=== PATIENT | male | born 1935 | race Caucasian/White ===

== ENCOUNTER 2016-12-23 08:17 | Day surgery (SDC) | payer OTHER, MEDICARE ==
[2016-12-22 16:56] VITALS: BMI 28.0
[2016-12-23] MEDS: CYCLOPENTOLATE 2% OPHTH SOLN 2 ML BOTTLE ONE ×3 (09:10→09:20)
[2016-12-23] MEDS: PHENYLEPHRINE 2.5% OPHTH SOLN 15 ML BOTTLE ONE ×3 (09:10→09:20)
[2016-12-23] MEDS: TROPICAMIDE 1% OPHTH SOLN 15 ML BOTTLE ONE ×3 (09:10→09:20)
[2016-12-23] MEDS: CIPROFLOXACIN 0.3% EYE DROPS 5 ML BOTTLE ONE ×3 (09:10→09:20)
[2016-12-23] MEDS ORDERED: BSS (NA/CA/MG/K) BALANCED SALT SOLUTION OPHTH SOLN 15 ML BOTTLE ONE (09:18)
[2016-12-23] MEDS ORDERED: CARBACHOL 0.01% INTRA-OCULAR 1.5 ML VIAL ONE (09:18)
[2016-12-23] MEDS ORDERED: LIDOCAINE HCL 2% JELLY 10 ML CARTRIDGE ONE (09:55)
[2016-12-23] MEDS ORDERED: LIDOCAINE 1% P/F 10 MG/ML VIAL ONE (09:55)
[2016-12-23] MEDS ORDERED: MIDAZOLAM HCL 2 MG/2 ML SINGLE DOSE VIAL ONE (10:09)
[2016-12-23 11:21] VITALS: BP 100/56; PULSE 62; TEMP 98
[2016-12-23] MEDS ORDERED: ONDANSETRON 4 MG/2 ML VIAL IVPUSH PRN (16:39)
[2016-12-23] MEDS ORDERED: ACETAMINOPHEN 325 MG TABLET (FP) PO PRN (16:39)
[2016-12-23] MEDS ORDERED: LACTATED RINGERS SOLUTION 1,000 ML IV SCH (16:45)
--- NOTE | 2016-12-23 23:18 | OP ---
DATE OF OPERATION: 12/23/2016 OPERATIVE PROCEDURE: Lens phacoemulsification with posterior chamber intraocular lens placement left eye. PREOPERATIVE DIAGNOSIS: Visually significant cataract of left eye. POSTOPERATIVE DIAGNOSIS: Visually significant cataract of left eye. SURGEON: Christiano Corbett MD ANESTHESIA: MAC PROCEDURE: The patient was brought to the operating room and placed under monitored anesthesia care by Anesthesia. A drop of Tetracaine was then placed over the left eye. The patient was then prepped and draped in the usual sterile manner. A speculum was then placed over the left eye. The eye was then well irrigated with copious amounts of BSS (balanced salt solution). The operating microscope was then moved into position. A paracentesis was performed using a 15 degree blade. At this point 0.5 mL of 1% preservative-free lidocaine was injected into the anterior chamber. Amvisc plus was then injected into the anterior chamber. A clear corneal incision was then formed using a 2.2 mm keratome. A capsulorrhexis was then performed in a continuous circular fashion beginning with a cystotome, completed with an Utrata forceps. Hydrodissection was then performed using BSS on a cannula. The phaco probe was then introduced through the corneal wound and the cataract was removed using the phaco chop technique. Approximately 3 seconds of absolute phaco time was used. The remaining cortex was then removed using irrigation and aspiration with an I/A probe. The capsule was then filled with regular Amvisc and the capsule was noted to be intact. A previously selected foldable posterior chamber intraocular lens was then injected into the capsule through the corneal wound using a lens injector. It was then dialed into position using a Sinskey hook. The Amvisc was then removed using irrigation and aspiration. Miostat was then injected through the paracentesis to constrict the pupil. The paracentesis and corneal wound were then hydrated and noted to be water tight. A drop of Maxitrol was then placed over the eye. The speculum was removed and clear shield was taped over the eye. The patient tolerated the procedure well and there were no surgical complications. The patient was asked to follow up in my office the next day. CHRISTIANO CORBETT M.D. [id number]
== END 2016-12-23 11:00 ==
LOC: FASU 08:17
PROVIDERS: ATTEND Ophthalmology
PROC: 08RK3JZ Replacement of Left Lens with Synthetic Substitute, Percutaneous Approach (ICD-10-PCS; principal; 2016-12-23 10:10)
DX: H26.8 Other specified cataract (principal)

== ENCOUNTER 2017-05-22 01:01 | Inpatient (IN) | payer OTHER, MEDICARE ==
[2017-05-22] MEDS ORDERED: SODIUM CHLORIDE 0.9% 1000 ML INFUS.BAG IV PRN (01:42)
--- NOTE | 2017-05-22 01:42 | PDOC ---
History of Present Illness - General Chief Complaint: SIRS, Suspected/Possible Stated Complaint: FEVER Time Seen by Provider: 05/22/17 01:40 History Source: Legal Guardian(s), Correction Records ([facility]) - History of Present Illness Initial Comments: 05/22/17 03:23 81 year old male sent from [facility] for AMS, fever 101 x 1 day. information surrounding the worsening progression of illness Patient is alert responsive to tactile stimuli. Patient has a history of UTI, BPH, dementia, CVA, CAD. cardiac pacemaker, dysphagia. DNR/DNI as per [place] records PMD: [facility] Past History - Past Medical History Allergies/Adverse Reactions: Allergies Allergy/AdvReac Type Severity Reaction Status Date / Time No Known Allergies Allergy Verified 05/22/17 07:34 Home Medications: Ambulatory Orders Ascorbate Calcium [Vitamin C] 500 mg PO DAILY 12/22/16 Aspirin [ASA -] 81 mg PO DAILY 12/22/16 Clopidogrel Bisulfate [Plavix -] 75 mg PO DAILY 12/22/16 Ergocalciferol (Vitamin D2) [Vitamin D2] 50,000 unit PO WEEKLY 12/22/16 Finasteride 5 mg PO DAILY 12/22/16 Lisinopril 5 mg PO DAILY 12/22/16 Lurasidone HCl [Latuda] 120 mg PO DAILY 12/22/16 Metoprolol Succinate [Toprol Xl] 50 mg PO DAILY 12/22/16 Multivitamins [Multivit ([facility] Formulary)] 1 tab PO DAILY 12/22/16 Sertraline HCl [Zoloft -] 200 mg PO DAILY 12/22/16 Simvastatin 20 mg PO HS 12/22/16 Tamsulosin HCl 0.4 mg PO HS 12/22/16 Tramadol HCl/Acetaminophen [Tramadol-Acetaminophn 37.5-325] 1 each PO DAILY PRN 12/22/16 Tramadol HCl/Acetaminophen [Tramadol-Acetaminophn 37.5-325] 2 each PO BID Anemia: No Asthma: No Cancer: No CVA: Yes COPD: No Dementia: Yes Diabetes: No Disorders: Yes (BPH) HTN: Yes Hypercholesterolemia: Yes Seizures: No Thyroid Disease: No - Surgical History Cardiac Surgery: Yes (PACEMAKER INSERTION) - Psycho/Social/Smoking Cessation Hx Smoking History: Unknown if ever smoked Hx Alcohol Use: No Drug/Substance Use Hx: No Substance Use Type: None Hx Substance Use Treatment: No Review of Systems - Review of Systems Able to Perform ROS?: Yes Constitutional: Yes: Fever, Malaise Respiratory: Yes: Cough, Productive cough Neurological: Yes: Other (aletered mental status) *Physical Exam - Vital Signs 05/22/17 04:26 Last Vital Signs Temp Pulse Resp BP Pulse Ox 103.3 F H 90 27 H 138/94 90 L 05/22/17 02:18 05/22/17 02:18 05/22/17 02:18 05/22/17 02:18 05/22/17 02:18 - Physical Exam General Appearance: Yes: Other (alert responsive to tactile stimuli) Respiratory/Chest: positive: Labored Respiration, Other (coarse breath sounds) Cardiovascular: positive: Regular Rhythm, Regular Rate Gastrointestinal/Abdominal: positive: Normal Bowel Sounds, Soft Extremity: positive: Normal Capillary Refill, Normal Inspection, Normal Range of Motion Integumentary: positive: Normal Color, Dry, Warm Neurologic: positive: Alert, Respond to painful stimul. negative: Fully Oriented Heart Score/ECG Review - History History: Moderately suspicious - Electrocardiogram EKG: Non specific repolarization disturbance - Age Age: >/= 65 - Risk Factors Risk Factors Heart Score: Yes Hx Hypertension Based on the list above the patient has:: 1-2 risk factors - Troponin Troponin: 1-3x normal limit - Score Heart Score - Total: 6 - ECG Intrepretation Rhythm: Regular Rhythm Comment:: 05/22/17 03:48 Sinus RHYThm with sinus arrythmia. right bundle branch block RSR lead 1 05/22/17 06:26 ED Treatment Course - LABORATORY CBC & Chemistry Diagram: 05/26/17 06:30 05/26/17 06:30 - RADIOLOGY Chest X-Ray Result: Pneumonia (LLL? haziness) Medical Decision Making - Critical Care Time Total Critical Care Time (minutes): 60 Critical Care Statement: The care of this patient involved high complexity decision making to prevent further life threatening deterioration of the patient 's condition and/or to evaluate & treat vital organ system(s) failure or risk of failure. - Medical Decision Making 05/22/17 03:58 troponin elevated: I spoke to Dr. Luz. cardiology. for hypertension recommends lopressor. 05/22/17 04:20 discussed with ICU DIRECTOR TRANSPORTATION Elijah. recommends no ICU admission at this time due to stable v/s. 05/22/17 04:23 A: Elevated Troponin, Sepsis, Pneumonia P: cbc cmp troponin: elevated EKG: sinus rhythm RSR lead I chest xray 05/22/17 04:19 Dr. karin Man for admission. 05/22/17 06:25 Dr. ann man for sign out. 05/22/17 06:44 b/p dropping to 80/40. will start dopamine drip to maintain b/p. patient to be admitted for telestep down. 05/22/17 07:15 patient signed out to Heena Xiao DIRECTOR TRANSPORTATION. pending CT head, cardiac labs repeated and disposition *DC/Admit/Observation/Transfer Diagnosis at time of Disposition: Elevated troponin Sepsis Qualifiers: Sepsis type: sepsis due to unspecified organism Qualified Code(s): A41.9 - Sepsis, unspecified organism Pneumonia Qualifiers: Pneumonia type: due to unspecified organism Laterality: left Lung location: upper lobe of lung Qualified Code(s): J18.1 - Lobar pneumonia, unspecified organism - Discharge Dispostion Admit: Yes - Referrals
[2017-05-22] MEDS ORDERED: ACETAMINOPHEN 650 MG SUPP.RECT PR ONE (01:48)
[2017-05-22 02:34] LABS: URINE APPEARANCE SLCLOUDY; URINE BILIRUBIN NEGATIVE (NEGATIVE); URINE BLOOD NEGATIVE (NEGATIVE); URINE COLOR YELLOW; URINE GLUCOSE (UA) NEGATIVE (NEGATIVE); URINE KETONE NEGATIVE (NEGATIVE); URINE LEUK ESTERASE NEGATIVE (NEGATIVE); URINE NITRITE NEGATIVE (NEGATIVE); URINE PROTEIN NEGATIVE (NEGATIVE); URINE UROBILINOGEN NEGATIVE mg/dL (0.2-1.0)
[2017-05-22 02:37] LABS: BASOPHIL 0.1 % (0-2.0); EOSINOPHIL 0.3 % (0-4.5); MCH 30.6 pg (25.7-33.7); MCHC 33.7 g/dl (32.0-35.9); MEAN CELL VOLUME 90.8 fl (80-96); MEAN PLT VOLUME 11.3 fl (7.5-11.1); NEUTROPHILS 89.3 % (42.8-82.8); PLATELET COUNT 149 K/MM3 (134-434); RDW 13.2 % (11.9-15.9); WHITE BLOOD COUNT 16.3 K/mm3 (4.0-10.0)
[2017-05-22 02:45] LABS: VENOUS PH 7.34 (7.32-7.42)
[2017-05-22] MEDS: SODIUM CHLORIDE 1,000 ML IV SCH (02:52)
[2017-05-22 02:57] LABS: INR 1.21 (0.82-1.09); PROTHROMBIN TIME (PATIENT) 13.4 SEC (9.98-11.88)
[2017-05-22 03:00] LABS: ACTIVATED PTT 32.2 SECONDS (26.9-34.4)
[2017-05-22 03:08] LABS: ALBUMIN 3.8 g/dl (3.4-5.0); ANION GAP 12 (8-16); BILIRUBIN,TOTAL 0.5 mg/dL (0.2-1.0); CALCIUM 8.3 mg/dL (8.5-10.1); CO2 21 mmol/L (21-32); CREATININE 1.4 mg/dL (0.7-1.3); GLUCOSE,RANDOM 124 mg/dL (74-106); SGOT/AST 26 U/L (15-37); SGPT/ALT 33 U/L (12-78); TOT PROT 6.5 g/dl (6.4-8.2)
[2017-05-22 03:22] LABS: ALK PHOS 62 U/L (45-117); CPK 100 IU/L (39-308)
[2017-05-22] MEDS ORDERED: SODIUM CHLORIDE 500 ML IV STA ×2 (03:23→06:31)
[2017-05-22 03:24] LABS: TROPONIN I 0.72 ng/ml (0.00-0.05)
[2017-05-22] MEDS ORDERED: PIPERACILLIN/TAZOBACTAM 4.5 GM VIAL IVPB ONE (03:31)
[2017-05-22] MEDS ORDERED: VANCOMYCIN 1,000 MG in DEXTROSE 5%-WATER - 250 ML IVPB ONE (03:31)
[2017-05-22] MEDS ORDERED: VANCOMYCIN 1 GRAM (PRE-DOCKED) 250 ML IVPB ONE (03:59)
[2017-05-22] MEDS ORDERED: PIPERACILLIN/TAZOB 4.5 GM 100 ML IVPB ONE (03:59)
[2017-05-22] MEDS ORDERED: ASPIRIN 300 MG SUPP.RECT PR ONE (04:18)
[2017-05-22] MEDS ORDERED: ASPIRIN 300 MG SUPP.RECT RC ONE (04:31)
[2017-05-22] MEDS ORDERED: DOPAMINE 400 MG/D5W - 250 ML IVPB SCH (06:45)
--- NOTE | 2017-05-22 07:22 | PDOC ---
*Physical Exam - Vital Signs Last Vital Signs Temp Pulse Resp BP Pulse Ox 101 F H 82 15 101/34 99 05/22/17 06:02 05/22/17 06:44 05/22/17 06:44 05/22/17 06:44 05/22/17 06:44 Heart Score/ECG Review - History History: Slightly suspicious - Electrocardiogram EKG: Normal - Age Age: >/= 65 - Risk Factors Based on the list above the patient has:: >/=3 risk factors or Hx atherosclerotic disease - Troponin Troponin: 1-3x normal limit - Score Heart Score - Total: 5 - ECG Intrepretation Rhythm: Regular Rhythm (SINUS RHYTHM FIRST_DEGREE AV block rate 80) ED Treatment Course - LABORATORY CBC & Chemistry Diagram: 05/22/17 02:25 05/22/17 02:25 - ADDITIONAL ORDERS Additional order review: Laboratory Results 05/22/17 05/22/17 05/22/17 04:42 02:40 02:25 INR PTT (Actin FS) VBG pH 7.34 POC VBG pCO2 38.2 POC VBG pO2 57.2 H Mixed VBG HCO3 20.0 Sodium Potassium Chloride Carbon Dioxide Anion Gap BUN Creatinine Creat Clearance w eGFR Random Glucose Lactic Acid 2.4 H* 3.0 H* Calcium Total Bilirubin AST ALT Alkaline Phosphatase Creatine Kinase Troponin I Total Protein Albumin Urine Color Urine Appearance Urine pH Urine Protein Urine Glucose (UA) Urine Ketones Urine Blood Urine Nitrite Urine Bilirubin Urine Urobilinogen Ur Leukocyte Esterase Blood Type Antibody Screen 05/22/17 05/22/17 05/22/17 02:25 02:25 02:25 INR PTT (Actin FS) VBG pH POC VBG pCO2 POC VBG pO2 Mixed VBG HCO3 Sodium 137 Potassium 4.6 Chloride 104 Carbon Dioxide 21 Anion Gap 12 BUN 39 H Creatinine 1.4 H Creat Clearance w eGFR 48.40 Random Glucose 124 H Lactic Acid Calcium 8.3 L Total Bilirubin 0.5 AST 26 ALT 33 Alkaline Phosphatase 62 Creatine Kinase 100 Troponin I 0.72 H* Total Protein 6.5 Albumin 3.8 Urine Color Yellow Urine Appearance Slcloudy Urine pH 5.0 Urine Protein Negative Urine Glucose (UA) Negative Urine Ketones Negative Urine Blood Negative Urine Nitrite Negative Urine Bilirubin Negative Urine Urobilinogen Negative Ur Leukocyte Esterase Negative Blood Type O POSITIVE Antibody Screen Negative 05/22/17 02:25 INR 1.21 H PTT (Actin FS) 32.2 VBG pH POC VBG pCO2 POC VBG pO2 Mixed VBG HCO3 Sodium Potassium Chloride Carbon Dioxide Anion Gap BUN Creatinine Creat Clearance w eGFR Random Glucose Lactic Acid Calcium Total Bilirubin AST ALT Alkaline Phosphatase Creatine Kinase Troponin I Total Protein Albumin Urine Color Urine Appearance Urine pH Urine Protein Urine Glucose (UA) Urine Ketones Urine Blood Urine Nitrite Urine Bilirubin Urine Urobilinogen Ur Leukocyte Esterase Blood Type Antibody Screen 05/22/17 02:25 RBC 3.71 L MCV 90.8 MCHC 33.7 RDW 13.2 MPV 11.3 H Neutrophils % 89.3 H Lymphocytes % 2.7 L Monocytes % 7.6 Eosinophils % 0.3 Basophils % 0.1 - RADIOLOGY Chest X-Ray Result: Pneumonia (LLL? haziness) - Medications Given in the ED: ED Medications Discontinued Medications Generic Name Dose Route Start Last Admin Trade Name Freq PRN Reason Stop Dose Admin Acetaminophen 650 mg 05/22/17 01:48 05/22/17 02:24 Tylenol Suppository - [place] 05/22/17 01:49 650 mg ONCE ONE Administration Aspirin 300 mg 05/22/17 04:18 05/22/17 04:35 Asa - [place] 05/22/17 04:19 300 mg ONCE ONE Administration Sodium Chloride 500 mls @ 500 mls/hr 05/22/17 03:23 05/22/17 03:57 Normal Saline - IV 05/22/17 04:22 500 mls/hr ASDIR STA Administration Vancomycin HCl 1,000 mg/ 250 mls @ 200 mls/hr 05/22/17 03:31 05/22/17 03:57 Dextrose IVPB 05/22/17 04:45 200 mls/hr ONCE ONE Administration Piperacillin Sod/Tazobactam Sod 4.5 gm 05/22/17 03:31 05/22/17 03:57 Zosyn - IVPB 05/22/17 03:32 4.5 gm ONCE ONE Administration Medical Decision Making - Medical Decision Making 05/22/17 07:10 Patient received in sign out from RAYRAY Alberto. Patient is to be admitted to telemetry for sepsis AMS and elevated troponin. Attempted to contact Dr. Tina Delong for admission. Patient currently awaiting dopamine drip at 5 mics per minute. patient second troponin was collected. Second EKG unchanged from previous. 05/22/17 08:01 Receive phone call from radiologist Dr. Cary who states there is a questionable lung lesion in the left upper lobe versus the rib. He recommends a CT of the chest. We'll discuss case with Dr. Tina Goldsmith shortly. 05/22/17 09:15 Laboratory Tests 05/22/17 05/22/17 04:42 06:30 Lactic Acid 2.4 H* Troponin I 1.50 H* D 05/22/17 09:15 Selected Entries 05/22/17 07:30 Pulse Rate [ 77 Apical] Respiratory 16 Rate Blood Pressure 104/40 [Left Arm] O2 Sat by Pulse 99 Oximetry (%) Patient maintaining blood pressure without dopamine drip. Continue to place calls to Dr. Delong. Head CT negative for acute findings. Due to elevation of troponin will contact cardiology and consider heparin drip 05/22/17 09:[address] Delong. Chest CT without contrast was ordered. She recommends Dr. Taylor location and measurement technician to discuss troponin. Call was placed. 05/22/17 10:[address] Taylor as of yet. Call placed to nurse on to follow -up consultation and plan of care. *DC/Admit/Observation/Transfer Diagnosis at time of Disposition: Elevated troponin Sepsis Qualifiers: Sepsis type: sepsis due to unspecified organism Qualified Code(s): A41.9 - Sepsis, unspecified organism Pneumonia Qualifiers: Pneumonia type: due to unspecified organism Laterality: left Lung location: lower lobe of lung Qualified Code(s): J18.1 - Lobar pneumonia, unspecified organism - Referrals - Patient Instructions - Post Discharge Activity
[2017-05-22 08:14] LABS: TROPONIN I 1.5 ng/ml (0.00-0.05)
[2017-05-22] MEDS ORDERED: DOPAMINE 400 MG/D5W - 250 ML IVPB ONE (08:19)
[2017-05-22] MEDS ORDERED: ACETAMINOPHEN 325 MG TABLET (FP) PO PRN (09:08)
[2017-05-22] MEDS ORDERED: ALBUTEROL SO4 0.083% IH SOL 2.5 MG/3 ML VIAL.NEB. NEB PRN (09:08)
[2017-05-22] MEDS ORDERED: PIPERACILLIN/TAZOB 2.25 GM 2.25 GM in DEXTROSE 5%-WATER - 50 ML IVPB SCH (10:00)
[2017-05-22] MEDS ORDERED: FINASTERIDE 5 MG TABLET (FP) PO SCH (10:00)
--- NOTE | 2017-05-22 10:38 | HP ---
Admitting History and Physical - Primary Care Physician PCP: Jaguar Mccullough - Admission History of Present Illness: ER HISTORY - History of Present Illness Initial Comments: 05/22/17 03:23 81 year old male sent from [facility] for AMS, fever 101 x 1 day. Patient is alert responsive to tactile stimuli. Patient has a history of UTI, BPH, dementia, CVA, CAD. cardiac pacemaker, dysphagia. DNR/DNI as per [place] records PMD: [facility] Pt examined by me in Telemetry h/o CAD, s/p CABG, hard of hearing, BPH,HTN major depression, dementia Sent from [facility] for elevated temp 103 F recorded in NH and altered mental status.Baseline mentation-- alert, disoriented and does not follow commands. Pt currently lying in bed, no distress.He is following simple commands. Coughing + moist+, on 50%ventimask. Does not appear to in distress, comfortable. As per day nurse, he seems to be more awake. Vizcaino+ History Source: Medical Record Limitations to Obtaining History: Physical Impairment - Past Medical History Cardiovascular: Yes: CAD (s/p CABG, PPM), HTN Renal/: Yes: BPH, UTI - Past Surgical History Past Surgical History: Yes: CABG, Joint Replacement, Permanent Pacemaker - Smoking History Smoking history: Unknown if ever smoked Have you smoked in the past 12 months: No - Alcohol/Substance Use Hx Alcohol Use: No Home Medications - Allergies Allergies/Adverse Reactions: Allergies Allergy/AdvReac Type Severity Reaction Status Date / Time No Known Allergies Allergy Verified 05/22/17 07:34 - Home Medications Home Medications: Ambulatory Orders Ascorbate Calcium [Vitamin C] 500 mg PO DAILY 12/22/16 Aspirin [ASA -] 81 mg PO DAILY 12/22/16 Clopidogrel Bisulfate [Plavix -] 75 mg PO DAILY 12/22/16 Ergocalciferol (Vitamin D2) [Vitamin D2] 50,000 unit PO WEEKLY 12/22/16 Finasteride 5 mg PO DAILY 12/22/16 Lisinopril 5 mg PO DAILY 12/22/16 Lurasidone HCl [Latuda] 120 mg PO DAILY 12/22/16 Metoprolol Succinate [Toprol Xl] 50 mg PO DAILY 12/22/16 Multivitamins [Multivit ([facility] Formulary)] 1 tab PO DAILY 12/22/16 Sertraline HCl [Zoloft -] 200 mg PO DAILY 12/22/16 Simvastatin 20 mg PO HS 12/22/16 Tamsulosin HCl 0.4 mg PO HS 12/22/16 Tramadol HCl/Acetaminophen [Tramadol-Acetaminophn 37.5-325] 1 each PO DAILY PRN 12/22/16 Tramadol HCl/Acetaminophen [Tramadol-Acetaminophn 37.5-325] 2 each PO BID Family Disease History - Family Disease History Family History: Unable to Obtain Review of Systems Unable to obtain ROS, reason: dementia Physical Examination Vital Signs: Vital Signs Temperature 99.4 F 05/22/17 09:00 Pulse Rate 76 05/22/17 09:00 Respiratory Rate 16 05/22/17 09:00 Blood Pressure 108/52 05/22/17 09:00 O2 Sat by Pulse Oximetry (%) 99 05/22/17 09:00 Constitutional: Yes: No Distress, Calm Cardiovascular: Yes: Regular Rate and Rhythm Respiratory: Yes: Diminished, Rhonchi, Other (sternal scar) Gastrointestinal: Yes: Normal Bowel Sounds, Soft, Abdomen, Obese. No: Distention, Tenderness Edema: No Psychiatric: Yes: Alert Labs: Laboratory Results - last 24 hr 05/22/17 05/22/17 05/22/17 02:25 02:25 02:25 WBC 16.3 H RBC 3.71 L Hgb 11.4 L Hct 33.7 L MCV 90.8 MCH 30.6 MCHC 33.7 RDW 13.2 Plt Count 149 MPV 11.3 H Neutrophils % 89.3 H Lymphocytes % 2.7 L Monocytes % 7.6 Eosinophils % 0.3 Basophils % 0.1 INR 1.21 H PTT (Actin FS) 32.2 VBG pH POC VBG pCO2 POC VBG pO2 Mixed VBG HCO3 Sodium Potassium Chloride Carbon Dioxide Anion Gap BUN Creatinine Creat Clearance w eGFR Random Glucose Lactic Acid Calcium Total Bilirubin AST ALT Alkaline Phosphatase Creatine Kinase Troponin I Total Protein Albumin Urine Color Yellow Urine Appearance Slcloudy Urine pH 5.0 Ur Specific [place] 1.010 Urine Protein Negative Urine Glucose (UA) Negative Urine Ketones Negative Urine Blood Negative Urine Nitrite Negative Urine Bilirubin Negative Urine Urobilinogen Negative Ur Leukocyte Esterase Negative Blood Type Antibody Screen 05/22/17 05/22/17 05/22/17 02:25 02:25 02:25 WBC RBC Hgb Hct MCV MCH MCHC RDW Plt Count MPV Neutrophils % Lymphocytes % Monocytes % Eosinophils % Basophils % INR PTT (Actin FS) VBG pH POC VBG pCO2 POC VBG pO2 Mixed VBG HCO3 Sodium 137 Potassium 4.6 Chloride 104 Carbon Dioxide 21 Anion Gap 12 BUN 39 H Creatinine 1.4 H Creat Clearance w eGFR 48.40 Random Glucose 124 H Lactic Acid 3.0 H* Calcium 8.3 L Total Bilirubin 0.5 AST 26 ALT 33 Alkaline Phosphatase 62 Creatine Kinase 100 Troponin I 0.72 H* Total Protein 6.5 Albumin 3.8 Urine Color Urine Appearance Urine pH Ur Specific [place] Urine Protein Urine Glucose (UA) Urine Ketones Urine Blood Urine Nitrite Urine Bilirubin Urine Urobilinogen Ur Leukocyte Esterase Blood Type O POSITIVE Antibody Screen Negative 05/22/17 05/22/17 05/22/17 02:40 04:42 06:30 WBC RBC Hgb Hct MCV MCH MCHC RDW Plt Count MPV Neutrophils % Lymphocytes % Monocytes % Eosinophils % Basophils % INR PTT (Actin FS) VBG pH 7.34 POC VBG pCO2 38.2 POC VBG pO2 57.2 H Mixed VBG HCO3 20.0 Sodium Potassium Chloride Carbon Dioxide Anion Gap BUN Creatinine Creat Clearance w eGFR Random Glucose Lactic Acid 2.4 H* Calcium Total Bilirubin AST ALT Alkaline Phosphatase Creatine Kinase 202 Troponin I 1.50 H* D Total Protein Albumin Urine Color Urine Appearance Urine pH Ur Specific [place] Urine Protein Urine Glucose (UA) Urine Ketones Urine Blood Urine Nitrite Urine Bilirubin Urine Urobilinogen Ur Leukocyte Esterase Blood Type Antibody Screen Imaging - Results Chest X-ray: Image Reviewed (? pneumonia , density left upper lobe) Cat Scan: Report Reviewed (head CT negative) EKG: Image Reviewed (NSR) Problem List - Problems (1) Pneumonia Code(s): J18.9 - PNEUMONIA, UNSPECIFIED ORGANISM Qualifiers: Pneumonia type: due to unspecified organism Laterality: left Lung location: upper lobe of lung Qualified Code(s): J18.1 - Lobar pneumonia, unspecified organism (2) Sepsis Code(s): A41.9 - SEPSIS, UNSPECIFIED ORGANISM Qualifiers: Sepsis type: sepsis due to unspecified organism Qualified Code(s): A41.9 - Sepsis, unspecified organism (3) NSTEMI (non-ST elevated myocardial infarction) Code(s): I21.4 - NON-ST ELEVATION (NSTEMI) MYOCARDIAL INFARCTION (4) Depression Code(s): F32.9 - MAJOR DEPRESSIVE DISORDER, SINGLE EPISODE, UNSPECIFIED (5) Dementia Code(s): F03.90 - UNSPECIFIED DEMENTIA WITHOUT BEHAVIORAL DISTURBANCE (6) HTN (hypertension) Code(s): I10 - ESSENTIAL (PRIMARY) HYPERTENSION (7) CAD (coronary artery disease) Code(s): I25.10 - ATHSCL HEART DISEASE OF [place] CORONARY ARTERY W/O ANG PCTRS Assessment/Plan PLAN Fever- ? pneumonia Pulmonary and ID eval Check sputum cultures Iv antibiotics Chest CT - no contrast ordered cultures pending repeat lactic acid levels IV fluids gentle nebs as needed NSTEMI- Trend Troponins Telemetry Cardiology eval with regards to Heparin infusion elevated troponins may be due to sepsis continue with ASA and Plavix Lung lesion -- seen in XR -- Ct chest ordered Advance directive- DNR/DNI
[2017-05-22] MEDS ORDERED: PIPERACILLIN/TAZOB 2.25 GM/50 ML PRE-DOCKED BAG IVPB ONE (11:30)
--- NOTE | 2017-05-22 11:55 | CON.CARD ---
Consult Consult Specialty:: cardiology Reason for Consultation:: elevated TNI - History of Present Illness History of Present Illness: 81 year old male sent from [facility] for AMS, fever 101 x 1 day. Patient is alert responsive to tactile stimuli. Patient has a history of ?CABG, UTI, BPH, dementia, CVA, CAD. cardiac pacemaker , dysphagia. "sonte-cold deag" (per bijal), DNR/DNI as per [place] records - History Source History Provided By: Patient, Medical Record Limitations to Obtaining History: Other (hard of hearing) - Past Medical History Cardio/Vascular: Yes: CAD (s/p CABG, PPM), HTN Renal/: Yes: BPH, UTI - Past Surgical History Past Surgical History: Yes: CABG, Joint Replacement, Permanent Pacemaker - Alcohol/Substance Use Hx Alcohol Use: No - Smoking History Smoking history: Unknown if ever smoked Have you smoked in the past 12 months: No Home Medications - Allergies Allergies/Adverse Reactions: Allergies Allergy/AdvReac Type Severity Reaction Status Date / Time No Known Allergies Allergy Verified 05/22/17 07:34 - Home Medications Home Medications: Ambulatory Orders Ascorbate Calcium [Vitamin C] 500 mg PO DAILY 12/22/16 Aspirin [ASA -] 81 mg PO DAILY 12/22/16 Clopidogrel Bisulfate [Plavix -] 75 mg PO DAILY 12/22/16 Ergocalciferol (Vitamin D2) [Vitamin D2] 50,000 unit PO WEEKLY 12/22/16 Finasteride 5 mg PO DAILY 12/22/16 Lisinopril 5 mg PO DAILY 12/22/16 Lurasidone HCl [Latuda] 120 mg PO DAILY 12/22/16 Metoprolol Succinate [Toprol Xl] 50 mg PO DAILY 12/22/16 Multivitamins [Multivit ([facility] Formulary)] 1 tab PO DAILY 12/22/16 Sertraline HCl [Zoloft -] 200 mg PO DAILY 12/22/16 Simvastatin 20 mg PO HS 12/22/16 Tamsulosin HCl 0.4 mg PO HS 12/22/16 Tramadol HCl/Acetaminophen [Tramadol-Acetaminophn 37.5-325] 1 each PO DAILY PRN 12/22/16 Tramadol HCl/Acetaminophen [Tramadol-Acetaminophn 37.5-325] 2 each PO BID Vital Signs: Vital Signs Temperature 99.4 F 05/22/17 09:00 Pulse Rate 76 05/22/17 09:00 Respiratory Rate 18 05/22/17 09:00 Blood Pressure 108/52 05/22/17 09:00 O2 Sat by Pulse Oximetry (%) 96 05/22/17 09:00 - Other Data Labs, Other Data: INR, PTT INR 1.21 (0.82-1.09) H 05/22/17 02:25 Problem List - Problems (1) Elevated troponin Assessment/Plan: TNI 0.7-->1.5; CK relative index not suggestive of IL; however, pt now c/o chest pain. F/u EKG and TNI now. On ASA and clopidogrel; on statin. IV heparin if EKG changes (RBBB this am) and continue chest pain. ECHO for LVEF, wall motion. Code(s): R74.8 - ABNORMAL LEVELS OF OTHER SERUM ENZYMES (2) HTN (hypertension) Assessment/Plan: initially "hypotensive"; f/u BP serially. Code(s): I10 - ESSENTIAL (PRIMARY) HYPERTENSION (3) Sepsis Assessment/Plan: antibiotics per ID. Code(s): A41.9 - SEPSIS, UNSPECIFIED ORGANISM Qualifiers: Sepsis type: sepsis due to unspecified organism Qualified Code(s): A41.9 - Sepsis, unspecified organism (4) History of permanent cardiac pacemaker placement Code(s): Z95.0 - PRESENCE OF CARDIAC PACEMAKER (5) Anemia Code(s): D64.9 - ANEMIA, UNSPECIFIED (6) Hard of hearing Code(s): H91.90 - UNSPECIFIED HEARING LOSS, UNSPECIFIED EAR (7) Hyperlipidemia Assessment/Plan: on statin. Code(s): E78.5 - HYPERLIPIDEMIA, UNSPECIFIED
--- NOTE | 2017-05-22 12:31 | PN ---
Progress Note (short form) - Note Progress Note: ID consult 81 year old man with cad admitted from [place] with fever to 103 and change in mental status elevated lactic acid elevated WBC positive troponins cxray ?RUL nodule, LLL infiltrate UA negative he is alert now c/o not feeling well, left sided chest pain sepsis- possible pneumonia received vanco/zosyn in ED this am would treat with zosyn/zithromax blood cultures urinary antigens hopefully de-escalate next 48 hours ?NSTEMI- d/w cardiology renal insufficiency lung mass chest ct ordered Problem List - Problems (1) Sepsis Code(s): A41.9 - SEPSIS, UNSPECIFIED ORGANISM Qualifiers: Sepsis type: sepsis due to unspecified organism Qualified Code(s): A41.9 - Sepsis, unspecified organism (2) Pneumonia Code(s): J18.9 - PNEUMONIA, UNSPECIFIED ORGANISM Qualifiers: Pneumonia type: due to unspecified organism Laterality: left Lung location: upper lobe of lung Qualified Code(s): J18.1 - Lobar pneumonia, unspecified organism (3) NSTEMI (non-ST elevated myocardial infarction) Code(s): I21.4 - NON-ST ELEVATION (NSTEMI) MYOCARDIAL INFARCTION (4) Lung mass Code(s): R91.8 - OTHER NONSPECIFIC ABNORMAL FINDING OF LUNG FIELD
[2017-05-22] MEDS ORDERED: PT OWN MED DRAWER 7, Y5N ONE (13:06)
--- NOTE | 2017-05-22 13:24 | CONS ---
DATE OF CONSULTATION: 05/22/2017 HISTORY OF PRESENT ILLNESS: This is an 81-year-old man. He resides at the [facility]. He has lived there since 2016. Before that, he was at an assisted care facility. He has a prior history of coronary artery disease and he is very hard of hearing. Unfortunately, he does not have his hearing aids. He was transferred early this morning to the hospital with fever to 103 and lethargy. He was evaluated in the emergency room. He was felt to have possible left lower lobe pneumonia. He was treated with antibiotics. His lactic acid was noted to be elevated as well as his troponin. He was admitted to telemetry. He was given vancomycin and Zosyn earlier this morning along with Tylenol. I am asked to see him for further antibiotic recommendations. He is currently awake. He reports not feeling well and says he has left-sided chest pain. PAST MEDICAL HISTORY: Notable for AR. He has had a CVA, hypertension, hyperlipidemia. He has a history of depression, spinal stenosis. He has had UTI in the past. He has BPH. He has hyperlipidemia. He has a chronic Vizcaino catheter. He apparently was admitted with that. PAST SURGICAL HISTORY: Notable for coronary artery bypass graft. He has a permanent pacemaker. He has had bilateral hip replacements, and he has had cataract surgery. ADVANCED DIRECTIVES: He is DNR/DNI., MEDICATIONS AT THE DETENTION: Include tramadol, tamsulosin, Latuda, simvastatin, Plavix, finasteride, lisinopril, metoprolol, sertraline, multivitamins, vitamin C, aspirin. He is quite deaf, and his hearing aids are at home. FAMILY HISTORY: Is not available. ALLERGIES: He has no known drug allergies. SOCIAL HISTORY: [facility] a [facility] the [facility] two years, and as stated before, prior to that, he was in an adult home. REVIEW OF SYSTEMS: Notable for chest pain. He has had recent E. coli UTI in November of this year with an E. coli that was resistant to ampicillin and Bactrim. PHYSICAL EXAMINATION General: He is awake and alert now. Vital signs: Temperature is 99.4 rectally, maximum temperature was 103.3, pulse is 76, blood pressure is 133/58, respiratory rate 18, he was saturating 96% on a VentiMask. HEENT: He is normocephalic. His eyes are anicteric. Neck: Supple. Lungs: Have bibasilar crackles. Heart: Regular rate and rhythm. Abdomen: Soft, nontender. Extremities: Without edema. He has a chronic Vizcaino with clear urine. LABORATORY DATA: Labs are notable for a white count of 16.3, hemoglobin 11.4, platelets 149. BUN 39, creatinine 1.4. Troponins was 0.72 on admission at 3:00 a.m., and later today it is 1.5. Lactic acid was 3 on admission, is now 2.1. Urinalysis is negative. Blood and urine cultures are pending. IMAGING STUDIES: He had a head CT done in the emergency room which showed no acute pathology. He had chest x-ray with a possible right upper lobe lung nodule and increased left lung markings. SUMMARY: 1. This is an elderly man from the prison with sepsis, lactic acidosis, elevated white count, possible pneumonia. He received vancomycin and Zosyn in the emergency room. Would treat him with Zosyn and Zithromax for now. Would obtain blood cultures and urinary antigen for pneumococcus and legionella. Hopefully, can deescalate his antibiotics in the next 48 hours. 2. [id number] myocardial infarction with positive troponins. Discussed with Cardiology his continued chest pain. 3. Renal insufficiency. 4. Lung mass. CT of the chest has been ordered. He is DNR/DNI. Further recommendations to follow based on his clinical course. Coreen [id number]
[2017-05-22 13:29] VITALS: BMI 30.3
[2017-05-22 13:34] LABS: TROPONIN I 1.28 ng/ml (0.00-0.05)
[2017-05-22] MEDS: CLOPIDOGREL BISULFATE 75 MG TABLET (FP) PO SCH (13:42)
[2017-05-22] MEDS: SERTRALINE HCL 50 MG TABLET (FP) PO SCH (13:42)
[2017-05-22] MEDS: ASPIRIN 81 MG CHEWABLE TABLETS PO SCH (13:42)
[2017-05-22] MEDS: AZITHROMYCIN IVPB 250 ML IVPB SCH (13:43)
[2017-05-22] MEDS: PIPERACILLIN/TAZOB 3.375 GM/50 ML PRE-DOCKED IVPB SCH ×2 (13:43→18:29)
[2017-05-22] MEDS: LURASIDONE HCL 40 MG TABLET PO SCH (13:45)
--- NOTE | 2017-05-22 15:00 | CON.PULM ---
Consult Consult Specialty:: PULMONARY Referred by:: Dr. Goldsmith Reason for Consultation:: pneumonia - History of Present Illness Chief Complaint: fever History of Present Illness: 81yo male with h/o HTN, CAD s/p CABG, BPH, dementia who was sent from the long-term for fevers and mental status. Pt lethargic but arousable, unable to provide further history at this time. Febrile to 103.3 on admission and CXR showing bilateral infiltrates and RUL mass. Started on IVF and antibiotics. Also found to have positive troponins. - History Source History Provided By: Medical Record Limitations to Obtaining History: Clinical Condition - Past Medical History Cardio/Vascular: Yes: CAD (s/p CABG, PPM), HTN Renal/: Yes: BPH, UTI - Past Surgical History Past Surgical History: Yes: CABG, Joint Replacement, Permanent Pacemaker - Alcohol/Substance Use Hx Alcohol Use: No - Smoking History Smoking history: Unknown if ever smoked Have you smoked in the past 12 months: No Home Medications - Allergies Allergies/Adverse Reactions: Allergies Allergy/AdvReac Type Severity Reaction Status Date / Time No Known Allergies Allergy Verified 05/22/17 07:34 - Home Medications Home Medications: Ambulatory Orders Ascorbate Calcium [Vitamin C] 500 mg PO DAILY 12/22/16 Aspirin [ASA -] 81 mg PO DAILY 12/22/16 Clopidogrel Bisulfate [Plavix -] 75 mg PO DAILY 12/22/16 Ergocalciferol (Vitamin D2) [Vitamin D2] 50,000 unit PO WEEKLY 12/22/16 Finasteride 5 mg PO DAILY 12/22/16 Lisinopril 5 mg PO DAILY 12/22/16 Lurasidone HCl [Latuda] 120 mg PO DAILY 12/22/16 Metoprolol Succinate [Toprol Xl] 50 mg PO DAILY 12/22/16 Multivitamins [Multivit ([facility] Formul[facility])] 1 tab PO DAILY 12/22/16 Sertraline HCl [Zoloft -] 200 mg PO DAILY 12/22/16 Simvastatin 20 mg PO HS 12/22/16 Tamsulosin HCl 0.4 mg PO HS 12/22/16 Tramadol HCl/Acetaminophen [Tramadol-Acetaminophn 37.5-325] 1 each PO DAILY PRN 12/22/16 Tramadol HCl/Acetaminophen [Tramadol-Acetaminophn 37.5-325] 2 each PO BID Review of Systems Unable to obtain ROS, reason: pt lethargic Physical Exam Vital Sings: Vital Signs Temperature 100 F H 05/22/17 14:13 Pulse Rate 65 05/22/17 14:13 Respiratory Rate 18 05/22/17 14:13 Blood Pressure 125/54 05/22/17 14:13 O2 Sat by Pulse Oximetry (%) 96 05/22/17 09:00 Constitutional: Yes: Mild Distress Eyes: Yes: Conjunctiva Clear, EOM Intact HENT: Yes: Atraumatic, Normocephalic Neck: Yes: Supple, Trachea Midline Cardiovascular: Yes: Regular Rate and Rhythm Respiratory: Yes: Rhonchi ...Clubbing: No Gastrointestinal: Yes: Normal Bowel Sounds, Soft. No: Tenderness Edema: No Imaging - Results Chest X-ray: Report Reviewed, Image Reviewed (bilateral infiltrates, RUL mass) Problem List - Problems (1) Pneumonia Code(s): J18.9 - PNEUMONIA, UNSPECIFIED ORGANISM Qualifiers: Pneumonia type: due to unspecified organism Laterality: left Lung location: upper lobe of lung Qualified Code(s): J18.1 - Lobar pneumonia, unspecified organism (2) Sepsis Code(s): A41.9 - SEPSIS, UNSPECIFIED ORGANISM Qualifiers: Sepsis type: sepsis due to unspecified organism Qualified Code(s): A41.9 - Sepsis, unspecified organism (3) Lactic acidosis Code(s): E87.2 - ACIDOSIS (4) Acute kidney injury Code(s): N17.9 - ACUTE KIDNEY FAILURE, UNSPECIFIED (5) Elevated troponin Code(s): R74.8 - ABNORMAL LEVELS OF OTHER SERUM ENZYMES (6) NSTEMI (non-ST elevated myocardial infarction) Code(s): I21.4 - NON-ST ELEVATION (NSTEMI) MYOCARDIAL INFARCTION Assessment/Plan Pneumonia Severe Sepsis Lactic Acidosis Acute Kidney Injury +Troponins likely Demand Ischemi r/o [place] HTN CAD s/p CABG - IV antibiotics to cover health care acquired organisms - f/u cultures - IVF - monitor urine output, creatinine - trend cardiac enzymes - echocardiogram - O2 to keep SpO2 >90% - aspiration precautions - guarded prognosis Thank you for this consult Huan Jacobo MD
--- NOTE | 2017-05-22 18:37 | EKG ---
Test Reason : Blood Pressure : / mmHG Vent. Rate : 073 BPM Atrial Rate : 073 BPM P-R Int : 236 ms QRS Dur : 152 ms QT Int : 428 ms P-R-T Axes : 071 -48 039 degrees QTc Int : 471 ms SINUS RHYTHM WITH 1ST DEGREE A-V BLOCK RIGHT BUNDLE BRANCH BLOCK LEFT ANTERIOR FASCICULAR BLOCK BIFASCICULAR BLOCK ABNORMAL ECG WHEN COMPARED WITH ECG OF 22-MAY-2017 06:56, NO SIGNIFICANT CHANGE WAS FOUND Confirmed by EDWIN AVENDANO MD ([id number]) on 05/22/2017 6:36:42 PM Referred By: Stephanie MCCLELLAND Confirmed By:EDWIN AVENDANO MD
--- NOTE | 2017-05-22 18:37 | EKG ---
Test Reason : Blood Pressure : / mmHG Vent. Rate : 080 BPM Atrial Rate : 080 BPM P-R Int : 222 ms QRS Dur : 144 ms QT Int : 446 ms P-R-T Axes : -04 -52 034 degrees QTc Int : 514 ms SINUS RHYTHM WITH 1ST DEGREE A-V BLOCK LEFT AXIS DEVIATION RIGHT BUNDLE BRANCH BLOCK ABNORMAL ECG WHEN COMPARED WITH ECG OF 22-MAY-2017 03:02, MO INTERVAL HAS INCREASED Confirmed by EDWIN AVENDANO MD ([id number]) on 05/22/2017 6:37:28 PM Referred By: Confirmed By:EDWIN AVENDANO MD
--- NOTE | 2017-05-22 18:38 | EKG ---
Test Reason : Blood Pressure : / mmHG Vent. Rate : 077 BPM Atrial Rate : 077 BPM P-R Int : 000 ms QRS Dur : 152 ms QT Int : 460 ms P-R-T Axes : 000 -26 021 degrees QTc Int : 520 ms SINUS RHYTHM WITH MARKED SINUS ARRHYTHMIA RIGHT BUNDLE BRANCH BLOCK ABNORMAL ECG NO PREVIOUS ECGS AVAILABLE Confirmed by EDWIN AVENDANO MD ([id number]) on 05/22/2017 6:37:59 PM Referred By: Confirmed By:EDWIN AVENDANO MD
[2017-05-22] MEDS: ATORVASTATIN CA 10 MG TABLET (FP) PO SCH (22:17)
[2017-05-22] MEDS: HEPARIN NA (PORCINE) 5,000 UNITS/ML 1ML VIAL SQ SCH (22:17)
[2017-05-22] MEDS: TAMSULOSIN HCL 0.4 MG CAP.ER.24H (FP) PO SCH (22:17)
[2017-05-23] MEDS: PIPERACILLIN/TAZOB 3.375 GM/50 ML PRE-DOCKED IVPB SCH ×3 (01:02→17:34)
[2017-05-23 08:09] LABS: BASOPHIL 0.1 % (0-2.0); MCH 31.6 pg (25.7-33.7); MCHC 34.8 g/dl (32.0-35.9); MEAN CELL VOLUME 90.6 fl (80-96); MEAN PLT VOLUME 11.7 fl (7.5-11.1); NEUTROPHILS 87.4 % (42.8-82.8); PLATELET COUNT 98 K/MM3 (134-434); RDW 13.3 % (11.9-15.9); WHITE BLOOD COUNT 8.4 K/mm3 (4.0-10.0)
[2017-05-23 08:29] LABS: ALBUMIN 3.2 g/dl (3.4-5.0); ANION GAP 7 (8-16); CALCIUM 8.4 mg/dL (8.5-10.1); CO2 24 mmol/L (21-32); CREATININE 0.9 mg/dL (0.7-1.3); GLUCOSE,RANDOM 136 mg/dL (74-106); SGOT/AST 23 U/L (15-37); SGPT/ALT 26 U/L (12-78)
[2017-05-23 08:31] LABS: ALK PHOS 45 U/L (45-117); BILIRUBIN,TOTAL 0.5 mg/dL (0.2-1.0); TOT PROT 5.9 g/dl (6.4-8.2)
[2017-05-23] MEDS: SERTRALINE HCL 50 MG TABLET (FP) PO SCH ×2 (09:12→09:58)
[2017-05-23] MEDS: CLOPIDOGREL BISULFATE 75 MG TABLET (FP) PO SCH (09:13)
[2017-05-23] MEDS: ASPIRIN 81 MG CHEWABLE TABLETS PO SCH (09:13)
[2017-05-23] MEDS: HEPARIN NA (PORCINE) 5,000 UNITS/ML 1ML VIAL SQ SCH ×2 (09:13→21:47)
[2017-05-23] MEDS: AZITHROMYCIN IVPB 250 ML IVPB SCH (09:13)
[2017-05-23] MEDS: LURASIDONE HCL 40 MG TABLET PO SCH (09:14)
--- NOTE | 2017-05-23 09:48 | PN ---
Progress Note, Physician Chief Complaint: More awake today ate ok cough+ - Current Medication List Current Medications: Active Medications Acetaminophen (Tylenol -) 650 mg PO Q6H PRN PRN Reason: FEVER OR PAIN Albuterol Sulfate (Ventolin 0.083% Nebulizer Soln -) 1 amp NEB Q4H PRN PRN Reason: SHORT OF BREATH/WHEEZING Aspirin (Asa -) 81 mg PO DAILY [facility] Last Admin: 05/23/17 09:13 Dose: 81 mg Atorvastatin Calcium (Lipitor -) 10 mg PO HS [facility] Last Admin: 05/22/17 22:17 Dose: 10 mg Clopidogrel Bisulfate (Plavix -) 75 mg PO DAILY [facility] Last Admin: 05/23/17 09:13 Dose: 75 mg Heparin Sodium (Porcine) (Heparin -) 5,000 unit SQ BID [facility] Last Admin: 05/23/17 09:13 Dose: 5,000 unit Sodium Chloride (Normal Saline -) 1,000 mls @ 150 mls/hr IV ASDIR [facility] Last Admin: 05/22/17 02:52 Dose: 150 mls/hr Azithromycin (Zithromax 500mg Ivpb (Pre-Docked)) 250 mls @ 250 mls/hr IVPB DAILY [facility] Last Admin: 05/23/17 09:13 Dose: 250 mls/hr Lurasidone HCl (Latuda -) 120 mg PO DAILY [facility] Last Admin: 05/23/17 09:14 Dose: 120 mg Piperacillin Sod/Tazobactam Sod (Zosyn 3.375gm Ivpb (Pre-Docked)) 3.375 gm IVPB Q8H-IV [facility] PRN Reason: Protocol Last Admin: 05/23/17 09:13 Dose: 3.375 gm Sertraline HCl (Zoloft -) 200 mg PO DAILY [facility] Last Admin: 05/23/17 09:12 Dose: 200 mg Sodium Chloride (Normal Saline -) 250 ml IV Q20M PRN PRN Reason: MAP<65mm Hg OR SBP <90 Tamsulosin HCl (Flomax -) 0.4 mg PO [facility] Last Admin: 05/22/17 22:17 Dose: 0.4 mg - Objective Vital Signs: Vital Signs Temperature 98.1 F 05/23/17 05:39 Pulse Rate 65 05/23/17 05:39 Respiratory Rate 20 05/23/17 05:39 Blood Pressure 144/58 05/23/17 05:39 O2 Sat by Pulse Oximetry (%) 96 05/22/17 21:00 Constitutional: Yes: No Distress Cardiovascular: Yes: Regular Rate and Rhythm Respiratory: Yes: Diminished, Rhonchi Gastrointestinal: Yes: Normal Bowel Sounds, Soft, Abdomen, Obese. No: Distention, Tenderness Edema: No Labs: CBC, BMP 05/23/17 05:42 05/23/17 05:42 INR, PTT INR 1.21 (0.82-1.09) H 05/22/17 02:25 Problem List - Problems (1) Pneumonia Code(s): J18.9 - PNEUMONIA, UNSPECIFIED ORGANISM Qualifiers: Qualified Code(s): J18.1 - Lobar pneumonia, unspecified organism (2) Sepsis Code(s): A41.9 - SEPSIS, UNSPECIFIED ORGANISM Qualifiers: Qualified Code(s): A41.9 - Sepsis, unspecified organism (3) NSTEMI (non-ST elevated myocardial infarction) Code(s): I21.4 - NON-ST ELEVATION (NSTEMI) MYOCARDIAL INFARCTION (4) Depression Code(s): F32.9 - MAJOR DEPRESSIVE DISORDER, SINGLE EPISODE, UNSPECIFIED (5) Dementia Code(s): F03.90 - UNSPECIFIED DEMENTIA WITHOUT BEHAVIORAL DISTURBANCE (6) HTN (hypertension) Code(s): I10 - ESSENTIAL (PRIMARY) HYPERTENSION (7) CAD (coronary artery disease) Code(s): I25.10 - ATHSCL HEART DISEASE OF [place] D[place]-NI' CORONARY ARTERY W/O ANG PCTRS Assessment/Plan PLAN Fever- ? pneumonia Pulmonary and ID eval noted Check sputum cultures Iv antibiotics Chest CT - no contrast ordered-- pending cultures pending repeat lactic acid levels-- normal now IV fluids gentle nebs as needed NSTEMI- Trend Troponins Telemetry Cardiology eval noted -- continue with ASA and Plavix elevated troponins may be due to sepsis Lung lesion -- seen in CXR -- Ct chest ordered Advance directive- DNR/DNI
--- NOTE | 2017-05-23 09:49 | PN ---
Progress Note (short form) - Note Progress Note: doing well, resing comfortably nasal canulla Vital Signs Period Temp Pulse Resp BP Sys/Mcfarlane Pulse Ox Last 24 Hr 97.3 F-100 F 64-84 18-20 123-144/51-60 96 cor-rrr lungs decreased bs at bases abd soft,nt ext no edema CBC, BMP 05/23/17 05:42 05/23/17 05:42 Microbiology 05/22/17 02:25 Blood - Peripheral Venous Blood Culture - Preliminary NO GROWTH OBTAINED AFTER 24 HOURS, INCUBATION TO CONTINUE FOR 4 DAYS. 05/22/17 02:25 Blood - Peripheral Venous Blood Culture - Preliminary NO GROWTH OBTAINED AFTER 24 HOURS, INCUBATION TO CONTINUE FOR 4 DAYS. Current Medications Acetaminophen (Tylenol -) 650 mg PO Q6H PRN PRN Reason: FEVER OR PAIN Albuterol Sulfate (Ventolin 0.083% Nebulizer Soln -) 1 amp NEB Q4H PRN PRN Reason: SHORT OF BREATH/WHEEZING Aspirin (Asa -) 81 mg PO DAILY [facility] Last Admin: 05/23/17 09:13 Dose: 81 mg Atorvastatin Calcium (Lipitor -) 10 mg PO HS [facility] Last Admin: 05/22/17 22:17 Dose: 10 mg Clopidogrel Bisulfate (Plavix -) 75 mg PO DAILY [facility] Last Admin: 05/23/17 09:13 Dose: 75 mg Heparin Sodium (Porcine) (Heparin -) 5,000 unit SQ BID [facility] Last Admin: 05/23/17 09:13 Dose: 5,000 unit Sodium Chloride (Normal Saline -) 1,000 mls @ 150 mls/hr IV ASDIR [facility] Last Admin: 05/22/17 02:52 Dose: 150 mls/hr Azithromycin (Zithromax 500mg Ivpb (Pre-Docked)) 250 mls @ 250 mls/hr IVPB DAILY [facility] Last Admin: 05/23/17 09:13 Dose: 250 mls/hr Lurasidone HCl (Latuda -) 120 mg PO DAILY [facility] Last Admin: 05/23/17 09:14 Dose: 120 mg Piperacillin Sod/Tazobactam Sod (Zosyn 3.375gm Ivpb (Pre-Docked)) 3.375 gm IVPB Q8H-IV KIMANI PRN Reason: Protocol Last Admin: 05/23/17 09:13 Dose: 3.375 gm Sertraline HCl (Zoloft -) 200 mg PO DAILY [facility] Last Admin: 05/23/17 09:12 Dose: 200 mg Sodium Chloride (Normal Saline -) 250 ml IV Q20M PRN PRN Reason: MAP<65mm Hg OR SBP <90 Tamsulosin HCl (Flomax -) 0.4 mg PO HS [facility] Last Admin: 05/22/17 22:17 Dose: 0.4 mg a/p sepsis- possible pneumonia zosyn/zithromax day #2 blood cultures urinary antigens hopefully de-escalate next 48 hours improved awaiting chest ct ?NSTEMI- d/w cardiology renal insufficiency lung mass chest ct ordered Problem List - Problems (1) Sepsis Code(s): A41.9 - SEPSIS, UNSPECIFIED ORGANISM Qualifiers: Sepsis type: sepsis due to unspecified organism Qualified Code(s): A41.9 - Sepsis, unspecified organism (2) Pneumonia Code(s): J18.9 - PNEUMONIA, UNSPECIFIED ORGANISM Qualifiers: Pneumonia type: due to unspecified organism Laterality: left Lung location: upper lobe of lung Qualified Code(s): J18.1 - Lobar pneumonia, unspecified organism (3) NSTEMI (non-ST elevated myocardial infarction) Code(s): I21.4 - NON-ST ELEVATION (NSTEMI) MYOCARDIAL INFARCTION (4) Lung mass Code(s): R91.8 - OTHER NONSPECIFIC ABNORMAL FINDING OF LUNG FIELD
[2017-05-23] MEDS: SODIUM CHLORIDE 1,000 ML IV SCH (09:57)
[2017-05-23 11:13] LABS: CPK 126 IU/L (39-308)
[2017-05-23 11:14] LABS: TROPONIN I 0.34 ng/ml (0.00-0.05)
--- NOTE | 2017-05-23 11:27 | PN ---
Progress Note, Physician History of Present Illness: 81 year old male sent from [facility] for AMS, fever 101 x 1 day. Patient is alert responsive to tactile stimuli. Patient has a history of ?CABG, UTI, BPH, dementia, CVA, CAD. cardiac pacemaker , dysphagia. "sonte-cold deag" (per bijal), DNR/DNI as per [place] - Current Medication List Current Medications: Active Medications Acetaminophen (Tylenol -) 650 mg PO Q6H PRN PRN Reason: FEVER OR PAIN Albuterol Sulfate (Ventolin 0.083% Nebulizer Soln -) 1 amp NEB Q4H PRN PRN Reason: SHORT OF BREATH/WHEEZING Aspirin (Asa -) 81 mg PO DAILY [facility] Last Admin: 05/23/17 09:13 Dose: 81 mg Atorvastatin Calcium (Lipitor -) 10 mg PO HS [facility] Last Admin: 05/22/17 22:17 Dose: 10 mg Clopidogrel Bisulfate (Plavix -) 75 mg PO DAILY [facility] Last Admin: 05/23/17 09:13 Dose: 75 mg Heparin Sodium (Porcine) (Heparin -) 5,000 unit SQ BID [facility] Last Admin: 05/23/17 09:13 Dose: 5,000 unit Sodium Chloride (Normal Saline -) 1,000 mls @ 150 mls/hr IV ASDIR [facility] Last Admin: 05/23/17 09:57 Dose: Not Given Azithromycin (Zithromax 500mg Ivpb (Pre-Docked)) 250 mls @ 250 mls/hr IVPB DAILY [facility] Last Admin: 05/23/17 09:13 Dose: 250 mls/hr Lurasidone HCl (Latuda -) 120 mg PO DAILY [facility] Last Admin: 05/23/17 09:14 Dose: 120 mg Piperacillin Sod/Tazobactam Sod (Zosyn 3.375gm Ivpb (Pre-Docked)) 3.375 gm IVPB Q8H-IV K[facility] PRN Reason: Protocol Last Admin: 05/23/17 09:13 Dose: 3.375 gm Sertraline HCl (Zoloft -) 100 mg PO DAILY [facility] Last Admin: 05/23/17 09:58 Dose: Not Given Sodium Chloride (Normal Saline -) 250 ml IV Q20M PRN PRN Reason: MAP<65mm Hg OR SBP <90 Tamsulosin HCl (Flomax -) 0.4 mg PO HS [facility] Last Admin: 05/22/17 22:17 Dose: 0.4 mg - Objective Vital Signs: Vital Signs Temperature 98.1 F 05/23/17 10:00 Pulse Rate 68 05/23/17 10:00 Respiratory Rate 20 05/23/17 10:00 Blood Pressure 152/69 05/23/17 10:00 O2 Sat by Pulse Oximetry (%) 98 05/23/17 10:00 Labs: CBC, BMP 05/23/17 05:42 05/23/17 05:42 INR, PTT INR 1.21 (0.82-1.09) H 05/22/17 02:25 Problem List - Problems (1) Elevated troponin Code(s): R74.8 - ABNORMAL LEVELS OF OTHER SERUM ENZYMES (2) HTN (hypertension) Code(s): I10 - ESSENTIAL (PRIMARY) HYPERTENSION (3) Sepsis Code(s): A41.9 - SEPSIS, UNSPECIFIED ORGANISM Qualifiers: Sepsis type: sepsis due to unspecified organism Qualified Code(s): A41.9 - Sepsis, unspecified organism (4) History of permanent cardiac pacemaker placement Code(s): Z95.0 - PRESENCE OF CARDIAC PACEMAKER (5) Anemia Code(s): D64.9 - ANEMIA, UNSPECIFIED (6) Hard of hearing Code(s): H91.90 - UNSPECIFIED HEARING LOSS, UNSPECIFIED EAR (7) Hyperlipidemia Code(s): E78.5 - HYPERLIPIDEMIA, UNSPECIFIED
[2017-05-23] MEDS ORDERED: PT OWN MED DRAWER 7, Y5N ONE (11:53)
--- NOTE | 2017-05-23 13:37 | EKG ---
Test Reason : Blood Pressure : / mmHG Vent. Rate : 071 BPM Atrial Rate : 097 BPM P-R Int : 000 ms QRS Dur : 160 ms QT Int : 482 ms P-R-T Axes : 000 -51 037 degrees QTc Int : 523 ms Atrial-paced rhythm with prolonged AV conduction WITH OCCASIONAL supraventricular complexes AND WITH PREMATURE VENTRICULAR OR ABERRANTLY CONDUCTED COMPLEXES RIGHT BUNDLE BRANCH BLOCK LEFT ANTERIOR FASCICULAR BLOCK BIFASCICULAR BLOCK ABNORMAL ECG WHEN COMPARED WITH ECG OF 22-MAY-2017 12:39, ELECTRONIC ATRIAL PACEMAKER HAS REPLACED SINUS RHYTHM Confirmed by LUCRECIA LUZ MD ([id number]) on 05/23/2017 1:36:28 PM Referred By: Stephanie MCCLELLAND Confirmed By:LUCRECIA LUZ MD
--- NOTE | 2017-05-23 16:25 | PN ---
Progress Note (short form) - Note Progress Note: PULMONARY More alert, awake. Pt defervescing. Last Vital Signs Temp Pulse Resp BP Pulse Ox 98.2 F 61 18 132/52 98 05/23/17 14:30 05/23/17 14:30 05/23/17 14:30 05/23/17 14:30 05/23/17 10:00 Gen: less tachypneic Heart: RRR Lung: less rhonchi Abd: soft, nontender Ext: no edema CBC, BMP 05/23/17 05:42 05/23/17 05:42 Active Medications Acetaminophen (Tylenol -) 650 mg PO Q6H PRN PRN Reason: FEVER OR PAIN Albuterol Sulfate (Ventolin 0.083% Nebulizer Soln -) 1 amp NEB Q4H PRN PRN Reason: SHORT OF BREATH/WHEEZING Aspirin (Asa -) 81 mg PO DAILY [facility] Last Admin: 05/23/17 09:13 Dose: 81 mg Atorvastatin Calcium (Lipitor -) 10 mg PO HS [facility] Last Admin: 05/22/17 22:17 Dose: 10 mg Clopidogrel Bisulfate (Plavix -) 75 mg PO DAILY [facility] Last Admin: 05/23/17 09:13 Dose: 75 mg Heparin Sodium (Porcine) (Heparin -) 5,000 unit SQ BID [facility] Last Admin: 05/23/17 09:13 Dose: 5,000 unit Sodium Chloride (Normal Saline -) 1,000 mls @ 150 mls/hr IV ASDIR [facility] Last Admin: 05/23/17 09:57 Dose: Not Given Azithromycin (Zithromax 500mg Ivpb (Pre-Docked)) 250 mls @ 250 mls/hr IVPB DAILY [facility] Last Admin: 05/23/17 09:13 Dose: 250 mls/hr Lurasidone HCl (Latuda -) 120 mg PO DAILY [facility] Last Admin: 05/23/17 09:14 Dose: 120 mg Piperacillin Sod/Tazobactam Sod (Zosyn 3.375gm Ivpb (Pre-Docked)) 3.375 gm IVPB Q8H-IV KIMANI PRN Reason: Protocol Last Admin: 05/23/17 09:13 Dose: 3.375 gm Sertraline HCl (Zoloft -) 100 mg PO DAILY [facility] Last Admin: 05/23/17 09:58 Dose: Not Given Sodium Chloride (Normal Saline -) 250 ml IV Q20M PRN PRN Reason: MAP<65mm Hg OR SBP <90 Tamsulosin HCl (Flomax -) 0.4 mg PO HS [facility] Last Admin: 05/22/17 22:17 Dose: 0.4 mg A/P Pneumonia Severe Sepsis Lactic Acidosis Acute Kidney Injury +Troponins likely Demand Ischemi r/o [place] HTN CAD s/p CABG - continue antibiotics to cover health care acquired organisms - f/u cultures - IVF - monitor urine output, creatinine - echocardiogram - O2 to keep SpO2 >90% - aspiration precautions - guarded prognosis Problem List - Problems (1) Pneumonia Code(s): J18.9 - PNEUMONIA, UNSPECIFIED ORGANISM Qualifiers: Pneumonia type: due to unspecified organism Laterality: left Lung location: upper lobe of lung Qualified Code(s): J18.1 - Lobar pneumonia, unspecified organism (2) Sepsis Code(s): A41.9 - SEPSIS, UNSPECIFIED ORGANISM Qualifiers: Sepsis type: sepsis due to unspecified organism Qualified Code(s): A41.9 - Sepsis, unspecified organism (3) Lactic acidosis Code(s): E87.2 - ACIDOSIS (4) Acute kidney injury Code(s): N17.9 - ACUTE KIDNEY FAILURE, UNSPECIFIED (5) Elevated troponin Code(s): R74.8 - ABNORMAL LEVELS OF OTHER SERUM ENZYMES (6) NSTEMI (non-ST elevated myocardial infarction) Code(s): I21.4 - NON-ST ELEVATION (NSTEMI) MYOCARDIAL INFARCTION
[2017-05-23] MEDS: TAMSULOSIN HCL 0.4 MG CAP.ER.24H (FP) PO SCH (21:48)
[2017-05-23] MEDS: ATORVASTATIN CA 10 MG TABLET (FP) PO SCH (21:48)
[2017-05-24] MEDS: PIPERACILLIN/TAZOB 3.375 GM/50 ML PRE-DOCKED IVPB SCH ×3 (03:17→17:29)
[2017-05-24 07:56] LABS: BASOPHIL 0.1 % (0-2.0); EOSINOPHIL 0.2 % (0-4.5); MCH 30.9 pg (25.7-33.7); MCHC 34.3 g/dl (32.0-35.9); MEAN PLT VOLUME 11.2 fl (7.5-11.1); NEUTROPHILS 81.1 % (42.8-82.8); PLATELET COUNT 113 K/MM3 (134-434); RDW 13.4 % (11.9-15.9); WHITE BLOOD COUNT 7.1 K/mm3 (4.0-10.0)
[2017-05-24 09:12] LABS: ANION GAP 9 (8-16); CALCIUM 8.5 mg/dL (8.5-10.1); CO2 24 mmol/L (21-32); CREATININE 0.7 mg/dL (0.7-1.3); GLUCOSE,RANDOM 125 mg/dL (74-106)
[2017-05-24] MEDS ORDERED: PT OWN MED DRAWER 7, Y5N ONE (09:48)
[2017-05-24] MEDS: HEPARIN NA (PORCINE) 5,000 UNITS/ML 1ML VIAL SQ SCH ×2 (10:03→21:47)
[2017-05-24] MEDS: CLOPIDOGREL BISULFATE 75 MG TABLET (FP) PO SCH (10:03)
[2017-05-24] MEDS: ASPIRIN 81 MG CHEWABLE TABLETS PO SCH (10:03)
[2017-05-24] MEDS: SERTRALINE HCL 50 MG TABLET (FP) PO SCH (10:03)
[2017-05-24] MEDS: LURASIDONE HCL 40 MG TABLET PO SCH (10:04)
[2017-05-24] MEDS: AZITHROMYCIN IVPB 250 ML IVPB SCH (10:12)
[2017-05-24] MEDS: SODIUM CHLORIDE 1,000 ML IV SCH (10:15)
--- NOTE | 2017-05-24 10:41 | PN ---
Progress Note, Physician History of Present Illness: seen and examined today in nad. no overnight events. no new complaints. pt is awake and alert but seems confused. also has difficulty hearing, trying to fix hearing aid currently. - Current Medication List Current Medications: Active Medications Acetaminophen (Tylenol -) 650 mg PO Q6H PRN PRN Reason: FEVER OR PAIN Albuterol Sulfate (Ventolin 0.083% Nebulizer Soln -) 1 amp NEB Q4H PRN PRN Reason: SHORT OF BREATH/WHEEZING Aspirin (Asa -) 81 mg PO DAILY [facility] Last Admin: 05/24/17 10:03 Dose: 81 mg Atorvastatin Calcium (Lipitor -) 10 mg PO HS [facility] Last Admin: 05/23/17 21:48 Dose: 10 mg Clopidogrel Bisulfate (Plavix -) 75 mg PO DAILY [facility] Last Admin: 05/24/17 10:03 Dose: 75 mg Heparin Sodium (Porcine) (Heparin -) 5,000 unit SQ BID [facility] Last Admin: 05/24/17 10:03 Dose: 5,000 unit Sodium Chloride (Normal Saline -) 1,000 mls @ 150 mls/hr IV ASDIR [facility] Last Admin: 05/24/17 10:15 Dose: 150 mls/hr Azithromycin (Zithromax 500mg Ivpb (Pre-Docked)) 250 mls @ 250 mls/hr IVPB DAILY [facility] Last Admin: 05/23/17 09:13 Dose: 250 mls/hr Lurasidone HCl (Latuda -) 120 mg PO DAILY [facility] Last Admin: 05/24/17 10:04 Dose: 120 mg Piperacillin Sod/Tazobactam Sod (Zosyn 3.375gm Ivpb (Pre-Docked)) 3.375 gm IVPB Q8H-IV KIMANI PRN Reason: Protocol Last Admin: 05/24/17 10:02 Dose: 3.375 gm Sertraline HCl (Zoloft -) 100 mg PO DAILY [facility] Last Admin: 05/24/17 10:03 Dose: 100 mg Tamsulosin HCl (Flomax -) 0.4 mg PO HS [facility] Last Admin: 05/23/17 21:48 Dose: 0.4 mg - Objective Vital Signs: Vital Signs Temperature 98.8 F 05/24/17 05:38 Pulse Rate 65 05/24/17 05:38 Respiratory Rate 20 05/24/17 05:38 Blood Pressure 148/53 0821/17 05:38 O2 Sat by Pulse Oximetry (%) 99 05/23/17 21:00 Constitutional: Yes: No Distress, Calm Eyes: Yes: Conjunctiva Clear, EOM Intact, PERRL HENT: Yes: Atraumatic, Normocephalic Neck: Yes: Supple, Trachea Midline Cardiovascular: Yes: Regular Rate and Rhythm, S1, S2. No: Bradycardia, Tachycardia, Pulse Irregular, Bruit, JVD, Gallop, Murmur, Rub, S3, S4, Varicosities Respiratory: Yes: Regular, Diminished. No: CTA Bilaterally, Rales, Rhonchi, SOB , Wheezes Gastrointestinal: Yes: WNL, Normal Bowel Sounds, Soft. No: Distention, Tenderness Musculoskeletal: Yes: Muscle Weakness Edema: No Peripheral Pulses WNL: Yes Peripheral Pulses: Left Doralis Pedis: 2+, Right Dorsalis Pedis: 2+ Neurological: Yes: Alert. No: Oriented Psychiatric: Yes: Alert. No: Oriented Labs: CBC, BMP 05/24/17 05:48 05/24/17 05:48 INR, PTT INR 1.21 (0.82-1.09) H 05/22/17 02:25 - ....Imaging Chest X-ray: Report Reviewed, Image Reviewed EKG: Report Reviewed, Image Reviewed Other: Report Reviewed, Image Reviewed (tele-nsr, pvcs, no sig arrhythmia noted) Assessment/Plan AMS Possible sepsis h/o CAD unknown details h/o PPM Recc Peak trop 1.5 with normal CK level, has trended down Unlikely type 1 NC, more likely related to sepsis and MARYAN Check echo to assess for structural abnl Cont ASA, Plavix, and Lipitor for now Due to advanced age and co-morbidities most likely best strategy is for medical management going forward and avoidance of invasive work up Will attempt to clarify prior cardiac history
--- NOTE | 2017-05-24 11:04 | PN ---
Progress Note, Physician History of Present Illness: pulmonary awake ,confused,nad,-sob - Current Medication List Current Medications: Active Medications Acetaminophen (Tylenol -) 650 mg PO Q6H PRN PRN Reason: FEVER OR PAIN Albuterol Sulfate (Ventolin 0.083% Nebulizer Soln -) 1 amp NEB Q4H PRN PRN Reason: SHORT OF BREATH/WHEEZING Aspirin (Asa -) 81 mg PO DAILY [facility] Last Admin: 05/24/17 10:03 Dose: 81 mg Atorvastatin Calcium (Lipitor -) 10 mg PO HS [facility] Last Admin: 05/23/17 21:48 Dose: 10 mg Clopidogrel Bisulfate (Plavix -) 75 mg PO DAILY [facility] Last Admin: 05/24/17 10:03 Dose: 75 mg Heparin Sodium (Porcine) (Heparin -) 5,000 unit SQ BID [facility] Last Admin: 05/24/17 10:03 Dose: 5,000 unit Sodium Chloride (Normal Saline -) 1,000 mls @ 150 mls/hr IV ASDIR [facility] Last Admin: 05/24/17 10:15 Dose: 150 mls/hr Azithromycin (Zithromax 500mg Ivpb (Pre-Docked)) 250 mls @ 250 mls/hr IVPB DAILY [facility] Last Admin: 05/23/17 09:13 Dose: 250 mls/hr Lurasidone HCl (Latuda -) 120 mg PO DAILY [facility] Last Admin: 05/24/17 10:04 Dose: 120 mg Piperacillin Sod/Tazobactam Sod (Zosyn 3.375gm Ivpb (Pre-Docked)) 3.375 gm IVPB Q8H-IV KIMANI PRN Reason: Protocol Last Admin: 05/24/17 10:02 Dose: 3.375 gm Sertraline HCl (Zoloft -) 100 mg PO DAILY [facility] Last Admin: 05/24/17 10:03 Dose: 100 mg Tamsulosin HCl (Flomax -) 0.4 mg PO HS [facility] Last Admin: 05/23/17 21:48 Dose: 0.4 mg - Objective Vital Signs: Vital Signs Temperature 98.8 F 05/24/17 05:38 Pulse Rate 65 05/24/17 05:38 Respiratory Rate 20 05/24/17 05:38 Blood Pressure 148/53 05/24/17 05:38 O2 Sat by Pulse Oximetry (%) 99 05/23/17 21:00 Constitutional: Yes: Well Nourished, Calm Eyes: Yes: WNL HENT: Yes: WNL Neck: Yes: WNL Cardiovascular: Yes: Regular Rate and Rhythm, S1, S2 Respiratory: Yes: Diminished (poor inspiratory effort) Gastrointestinal: Yes: Normal Bowel Sounds, Soft Extremities: Yes: WNL Edema: Yes Labs: CBC, BMP 05/24/17 05:48 05/24/17 05:48 INR, PTT INR 1.21 (0.82-1.09) H 05/22/17 02:25 - ....Imaging Cat Scan: Report Reviewed, Image Reviewed Assessment/Plan A/P Pneumonia s/p Severe Sepsis Lactic Acidosis improved Acute Kidney Injury improving +Troponins likely Demand Ischemia r/o [place] HTN CAD s/p CABG - continue antibiotics - IVF - monitor urine output, creatinine - O2 to keep SpO2 >90% - aspiration precautions DR CARDOZA Problem List - Problems (1) Pneumonia Code(s): J18.9 - PNEUMONIA, UNSPECIFIED ORGANISM Qualifiers: Pneumonia type: due to unspecified organism Laterality: left Lung location: upper lobe of lung Qualified Code(s): J18.1 - Lobar pneumonia, unspecified organism (2) Sepsis Code(s): A41.9 - SEPSIS, UNSPECIFIED ORGANISM Qualifiers: Sepsis type: sepsis due to unspecified organism Qualified Code(s): A41.9 - Sepsis, unspecified organism (3) Lactic acidosis Code(s): E87.2 - ACIDOSIS (4) Acute kidney injury Code(s): N17.9 - ACUTE KIDNEY FAILURE, UNSPECIFIED (5) Elevated troponin Code(s): R74.8 - ABNORMAL LEVELS OF OTHER SERUM ENZYMES (6) NSTEMI (non-ST elevated myocardial infarction) Code(s): I21.4 - NON-ST ELEVATION (NSTEMI) MYOCARDIAL INFARCTION
--- NOTE | 2017-05-24 13:07 | PN ---
Progress Note, Physician History of Present Illness: Awake but confused Offers no complaints Breathing non-labored Temps/ WBC improved Sputum normal ninfa - Current Medication List Current Medications: Active Medications Acetaminophen (Tylenol -) 650 mg PO Q6H PRN PRN Reason: FEVER OR PAIN Albuterol Sulfate (Ventolin 0.083% Nebulizer Soln -) 1 amp NEB Q4H PRN PRN Reason: SHORT OF BREATH/WHEEZING Aspirin (Asa -) 81 mg PO DAILY [facility] Last Admin: 05/24/17 10:03 Dose: 81 mg Atorvastatin Calcium (Lipitor -) 10 mg PO HS [facility] Last Admin: 05/23/17 21:48 Dose: 10 mg Clopidogrel Bisulfate (Plavix -) 75 mg PO DAILY [facility] Last Admin: 05/24/17 10:03 Dose: 75 mg Heparin Sodium (Porcine) (Heparin -) 5,000 unit SQ BID [facility] Last Admin: 05/24/17 10:03 Dose: 5,000 unit Sodium Chloride (Normal Saline -) 1,000 mls @ 150 mls/hr IV ASDIR [facility] Last Admin: 05/24/17 10:15 Dose: 150 mls/hr Azithromycin (Zithromax 500mg Ivpb (Pre-Docked)) 250 mls @ 250 mls/hr IVPB DAILY [facility] Last Admin: 05/23/17 09:13 Dose: 250 mls/hr Lurasidone HCl (Latuda -) 120 mg PO DAILY [facility] Last Admin: 05/24/17 10:04 Dose: 120 mg Piperacillin Sod/Tazobactam Sod (Zosyn 3.375gm Ivpb (Pre-Docked)) 3.375 gm IVPB Q8H-IV KIMANI PRN Reason: Protocol Last Admin: 05/24/17 10:02 Dose: 3.375 gm Sertraline HCl (Zoloft -) 100 mg PO DAILY [facility] Last Admin: 05/24/17 10:03 Dose: 100 mg Tamsulosin HCl (Flomax -) 0.4 mg PO [facility] Last Admin: 05/23/17 21:48 Dose: 0.4 mg - Objective Vital Signs: Vital Signs Temperature 98.8 F 05/24/17 05:38 Pulse Rate 65 05/24/17 05:38 Respiratory Rate 20 05/24/17 05:38 Blood Pressure 148/53 05/24/17 05:38 O2 Sat by Pulse Oximetry (%) 99 08/20/17 21:00 Constitutional: Yes: No Distress Eyes: Yes: Conjunctiva Clear Cardiovascular: Yes: Regular Rate and Rhythm, Murmur, S1, S2 Respiratory: Yes: Other (+ rhonchi lower lung parr bilaterally) Gastrointestinal: Yes: Normal Bowel Sounds, Soft. No: Tenderness Edema: No Labs: CBC, BMP 05/24/17 05:48 05/24/17 05:48 INR, PTT INR 1.21 (0.82-1.09) H 05/22/17 02:25 Assessment/Plan Bibasilar pneumonia Possible sepsis secondary to pneumonia Fever/leukocytosis improved Lactic acidosis- resolved Continue zithromax/zosyn
--- NOTE | 2017-05-24 13:35 | PN ---
Progress Note, Physician Chief Complaint: More awake today , speaking, alert ate ok cough+ - Current Medication List Current Medications: Active Medications Acetaminophen (Tylenol -) 650 mg PO Q6H PRN PRN Reason: FEVER OR PAIN Albuterol Sulfate (Ventolin 0.083% Nebulizer Soln -) 1 amp NEB Q4H PRN PRN Reason: SHORT OF BREATH/WHEEZING Aspirin (Asa -) 81 mg PO DAILY [facility] Last Admin: 05/24/17 10:03 Dose: 81 mg Atorvastatin Calcium (Lipitor -) 10 mg PO HS [facility] Last Admin: 05/23/17 21:48 Dose: 10 mg Clopidogrel Bisulfate (Plavix -) 75 mg PO DAILY [facility] Last Admin: 05/24/17 10:03 Dose: 75 mg Heparin Sodium (Porcine) (Heparin -) 5,000 unit SQ BID [facility] Last Admin: 05/24/17 10:03 Dose: 5,000 unit Sodium Chloride (Normal Saline -) 1,000 mls @ 150 mls/hr IV ASDIR [facility] Last Admin: 05/24/17 10:15 Dose: 150 mls/hr Azithromycin (Zithromax 500mg Ivpb (Pre-Docked)) 250 mls @ 250 mls/hr IVPB [facility]ILY [facility] Last Admin: 05/23/17 09:13 Dose: 250 mls/hr Lurasidone HCl (Latuda -) 120 mg PO DAILY [facility] Last Admin: 05/24/17 10:04 Dose: 120 mg Piperacillin Sod/Tazobactam Sod (Zosyn 3.375gm Ivpb (Pre-Docked)) 3.375 gm IVPB Q8H-IV KIMANI PRN Reason: Protocol Last Admin: 05/24/17 10:02 Dose: 3.375 gm Sertraline HCl (Zoloft -) 100 mg PO DAILY [facility] Last Admin: 05/24/17 10:03 Dose: 100 mg Tamsulosin HCl (Flomax -) 0.4 mg PO HS [facility] Last Admin: 05/23/17 21:48 Dose: 0.4 mg - Objective Vital Signs: Vital Signs Temperature 98.8 F 05/24/17 05:38 Pulse Rate 65 05/24/17 05:38 Respiratory Rate 20 05/24/17 05:38 Blood Pressure 148/53 05/24/17 05:38 O2 Sat by Pulse Oximetry (%) 99 05/23/17 21:00 Constitutional: Yes: No Distress Cardiovascular: Yes: Regular Rate and Rhythm Respiratory: Yes: Diminished Gastrointestinal: Yes: Normal Bowel Sounds, Soft. No: Distention, Tenderness Edema: No Psychiatric: Yes: Alert Labs: CBC, BMP 05/24/17 05:48 05/24/17 05:48 INR, PTT INR 1.21 (0.82-1.09) H 05/22/17 02:25 Problem List - Problems (1) Pneumonia Code(s): J18.9 - PNEUMONIA, UNSPECIFIED ORGANISM Qualifiers: Pneumonia type: due to unspecified organism Laterality: left Lung location: upper lobe of lung Qualified Code(s): J18.1 - Lobar pneumonia, unspecified organism (2) Sepsis Code(s): A41.9 - SEPSIS, UNSPECIFIED ORGANISM Qualifiers: Sepsis type: sepsis due to unspecified organism Qualified Code(s): A41.9 - Sepsis, unspecified organism (3) NSTEMI (non-ST elevated myocardial infarction) Code(s): I21.4 - NON-ST ELEVATION (NSTEMI) MYOCARDIAL INFARCTION (4) Depression Code(s): F32.9 - MAJOR DEPRESSIVE DISORDER, SINGLE EPISODE, UNSPECIFIED (5) Dementia Code(s): F03.90 - UNSPECIFIED DEMENTIA WITHOUT BEHAVIORAL DISTURBANCE (6) HTN (hypertension) Code(s): I10 - ESSENTIAL (PRIMARY) HYPERTENSION (7) CAD (coronary artery disease) Code(s): I25.10 - ATHSCL HEART DISEASE OF [place] CORONARY ARTERY W/O ANG PCTRS Assessment/Plan PLAN Fever- pneumonia Pulmonary and ID eval noted Check sputum cultures Iv antibiotics Chest CT - noted no masses cultures negative repeat lactic acid levels-- normal now nebs as needed NSTEMI- Trend Troponins Telemetry Echo - EF 65% elevated troponins may be due to sepsis improving clinically Advance directive- DNR/DNI
[2017-05-24] MEDS: ATORVASTATIN CA 10 MG TABLET (FP) PO SCH (21:47)
[2017-05-24] MEDS: TAMSULOSIN HCL 0.4 MG CAP.ER.24H (FP) PO SCH (21:47)
[2017-05-25] MEDS: SODIUM CHLORIDE 1,000 ML IV SCH (03:20)
[2017-05-25] MEDS: PIPERACILLIN/TAZOB 3.375 GM/50 ML PRE-DOCKED IVPB SCH ×2 (03:20→09:44)
[2017-05-25] MEDS ORDERED: PT OWN MED DRAWER 7, Y5N ONE (09:27)
[2017-05-25] MEDS: ASPIRIN 81 MG CHEWABLE TABLETS PO SCH (09:40)
[2017-05-25] MEDS: CLOPIDOGREL BISULFATE 75 MG TABLET (FP) PO SCH (09:40)
[2017-05-25] MEDS: AZITHROMYCIN IVPB 250 ML IVPB SCH (09:40)
[2017-05-25] MEDS: SERTRALINE HCL 50 MG TABLET (FP) PO SCH (09:40)
[2017-05-25] MEDS: LURASIDONE HCL 40 MG TABLET PO SCH (09:40)
[2017-05-25] MEDS: HEPARIN NA (PORCINE) 5,000 UNITS/ML 1ML VIAL SQ SCH (09:42)
--- NOTE | 2017-05-25 10:21 | PN ---
Progress Note, Physician Chief Complaint: coughing+ no SOb does not appear to be in distress awake and alert - Current Medication List Current Medications: Active Medications Acetaminophen (Tylenol -) 650 mg PO Q6H PRN PRN Reason: FEVER OR PAIN Albuterol Sulfate (Ventolin 0.083% Nebulizer Soln -) 1 amp NEB Q4H PRN PRN Reason: SHORT OF BREATH/WHEEZING Aspirin (Asa -) 81 mg PO DAILY [facility] Last Admin: 05/25/17 09:40 Dose: 81 mg Atorvastatin Calcium (Lipitor -) 10 mg PO HS [facility] Last Admin: 05/24/17 21:47 Dose: 10 mg Clopidogrel Bisulfate (Plavix -) 75 mg PO DAILY [facility] Last Admin: 05/25/17 09:40 Dose: 75 mg Heparin Sodium (Porcine) (Heparin -) 5,000 unit SQ BID [facility] Last Admin: 05/25/17 09:42 Dose: 5,000 unit Sodium Chloride (Normal Saline -) 1,000 mls @ 150 mls/hr IV ASDIR [facility] Last Admin: 05/25/17 03:20 Dose: 150 mls/hr Azithromycin (Zithromax 500mg Ivpb (Pre-Docked)) 250 mls @ 250 mls/hr IVPB DAILY [facility] Last Admin: 05/25/17 09:40 Dose: 250 mls/hr Lurasidone HCl (Latuda -) 120 mg PO DAILY [facility] Last Admin: 05/25/17 09:40 Dose: 120 mg Piperacillin Sod/Tazobactam Sod (Zosyn 3.375gm Ivpb (Pre-Docked)) 3.375 gm IVPB Q8H-IV KIMANI PRN Reason: Protocol Last Admin: 05/25/17 09:44 Dose: 3.375 gm Sertraline HCl (Zoloft -) 100 mg PO DAILY [facility] Last Admin: 05/25/17 09:40 Dose: 100 mg Tamsulosin HCl (Flomax -) 0.4 mg PO HS [facility] Last Admin: 05/24/17 21:47 Dose: 0.4 mg - Objective Vital Signs: Vital Signs Temperature 98.4 F 05/25/17 08:20 Pulse Rate 61 05/25/17 08:20 Respiratory Rate 20 05/25/17 08:20 Blood Pressure 144/58 05/25/17 08:20 O2 Sat by Pulse Oximetry (%) 94 L 05/24/17 21:00 Constitutional: Yes: No Distress Cardiovascular: Yes: Regular Rate and Rhythm Respiratory: Yes: Diminished Gastrointestinal: Yes: Normal Bowel Sounds, Soft. No: Distention, Tenderness Edema: No Labs: CBC, BMP 05/24/17 05:48 05/24/17 05:48 INR, PTT INR 1.21 (0.82-1.09) H 05/22/17 02:25 Problem List - Problems (1) Pneumonia Code(s): J18.9 - PNEUMONIA, UNSPECIFIED ORGANISM Qualifiers: Pneumonia type: due to unspecified organism Laterality: left Lung location: upper lobe of lung Qualified Code(s): J18.1 - Lobar pneumonia, unspecified organism (2) Sepsis Code(s): A41.9 - SEPSIS, UNSPECIFIED ORGANISM Qualifiers: Sepsis type: sepsis due to unspecified organism Qualified Code(s): A41.9 - Sepsis, unspecified organism (3) NSTEMI (non-ST elevated myocardial infarction) Code(s): I21.4 - NON-ST ELEVATION (NSTEMI) MYOCARDIAL INFARCTION (4) Depression Code(s): F32.9 - MAJOR DEPRESSIVE DISORDER, SINGLE EPISODE, UNSPECIFIED (5) Dementia Code(s): F03.90 - UNSPECIFIED DEMENTIA WITHOUT BEHAVIORAL DISTURBANCE (6) HTN (hypertension) Code(s): I10 - ESSENTIAL (PRIMARY) HYPERTENSION (7) CAD (coronary artery disease) Code(s): I25.10 - ATHSCL HEART DISEASE OF [place] CORONARY ARTERY W/O ANG PCTRS Assessment/Plan PLAN Fever- pneumonia iv antibiotics Chest CT - noted no masses cultures negative nebs as needed swallow eval to r/o aspiration NSTEMI- Trend Troponins Telemetry Echo - EF 65% elevated troponins may be due to sepsis improving clinically Advance directive- DNR/DNI
--- NOTE | 2017-05-25 11:02 | PN ---
Progress Note, Physician History of Present Illness: pulmonary more alert,nad,-sob,-cp - Current Medication List Current Medications: Active Medications Acetaminophen (Tylenol -) 650 mg PO Q6H PRN PRN Reason: FEVER OR PAIN Albuterol Sulfate (Ventolin 0.083% Nebulizer Soln -) 1 amp NEB Q4H PRN PRN Reason: SHORT OF BREATH/WHEEZING Aspirin (Asa -) 81 mg PO DAILY [facility] Last Admin: 05/25/17 09:40 Dose: 81 mg Atorvastatin Calcium (Lipitor -) 10 mg PO HS [facility] Last Admin: 05/24/17 21:47 Dose: 10 mg Clopidogrel Bisulfate (Plavix -) 75 mg PO DAILY [facility] Last Admin: 05/25/17 09:40 Dose: 75 mg Heparin Sodium (Porcine) (Heparin -) 5,000 unit SQ BID [facility] Last Admin: 05/25/17 09:42 Dose: 5,000 unit Sodium Chloride (Normal Saline -) 1,000 mls @ 150 mls/hr IV ASDIR [facility] Last Admin: 05/25/17 03:20 Dose: 150 mls/hr Azithromycin (Zithromax 500mg Ivpb (Pre-Docked)) 250 mls @ 250 mls/hr IVPB DAILY [facility] Last Admin: 05/25/17 09:40 Dose: 250 mls/hr Lurasidone HCl (Latuda -) 120 mg PO DAILY [facility] Last Admin: 05/25/17 09:40 Dose: 120 mg Piperacillin Sod/Tazobactam Sod (Zosyn 3.375gm Ivpb (Pre-Docked)) 3.375 gm IVPB Q8H-IV KIMANI PRN Reason: Protocol Last Admin: 05/25/17 09:44 Dose: 3.375 gm Sertraline HCl (Zoloft -) 100 mg PO DAILY [facility] Last Admin: 05/25/17 09:40 Dose: 100 mg Tamsulosin HCl (Flomax -) 0.4 mg PO HS [facility] Last Admin: 05/24/17 21:47 Dose: 0.4 mg - Objective Vital Signs: Vital Signs Temperature 98.4 F 05/25/17 08:20 Pulse Rate 61 05/25/17 08:20 Respiratory Rate 20 05/25/17 08:20 Blood Pressure 144/58 05/25/17 08:20 O2 Sat by Pulse Oximetry (%) 96 05/25/17 08:00 Constitutional: Yes: Well Nourished, Calm Eyes: Yes: WNL HENT: Yes: WNL Neck: Yes: WNL Cardiovascular: Yes: Regular Rate and Rhythm, S1, S2 Respiratory: Yes: Diminished (poor inspiratory effort) Gastrointestinal: Yes: Normal Bowel Sounds, Soft Extremities: Yes: WNL Edema: No Labs: CBC, BMP Assessment/Plan A/P Pneumonia s/p Severe Sepsis Lactic Acidosis improved Acute Kidney Injury improving +Troponins likely [place]and Ischemia r/o [place] HTN CAD s/p CABG - antibiotics - IVF - monitor urine output, creatinine - O2 to keep SpO2 >90% - aspiration precautions DR CARDOZA Problem List - Problems (1) Pneumonia Code(s): J18.9 - PNEUMONIA, UNSPECIFIED ORGANISM Qualifiers: Pneumonia type: due to unspecified organism Laterality: left Lung location: upper lobe of lung Qualified Code(s): J18.1 - Lobar pneumonia, unspecified organism (2) Sepsis Code(s): A41.9 - SEPSIS, UNSPECIFIED ORGANISM Qualifiers: Sepsis type: sepsis due to unspecified organism Qualified Code(s): A41.9 - Sepsis, unspecified organism (3) Lactic acidosis Code(s): E87.2 - ACIDOSIS (4) Acute kidney injury Code(s): N17.9 - ACUTE KIDNEY FAILURE, UNSPECIFIED (5) Elevated troponin Code(s): R74.8 - ABNORMAL LEVELS OF OTHER SERUM ENZYMES (6) NSTEMI (non-ST elevated myocardial infarction) Code(s): I21.4 - NON-ST ELEVATION (NSTEMI) MYOCARDIAL INFARCTION
--- NOTE | 2017-05-25 12:05 | CONSULT ---
Admitting History and Physical - Primary Care Physician PCP: Tina Goldsmith - Admission History of Present Illness: 81 year old male sent from [facility] for AMS, fever 101 x 1 day. Patient is alert responsive to tactile stimuli. Patient has a history of UTI, BPH, dementia, CVA, CAD. cardiac pacemaker, dysphagia. DNR/DNI as per [place] records Per ID: Bibasilar pneumonia Possible sepsis secondary to pneumonia Fever/leukocytosis improved Lactic acidosis- resolved Selected Entries 05/22/17 05/22/17 05/22/17 02:18 06:02 09:00 Breakfast Lunch Supper Temperature 103.3 F H 101 F H 99.4 F 05/22/17 05/22/17 05/22/17 11:59 14:13 17:00 Breakfast NPO Lunch Supper Temperature 100 F H 97.3 F L 05/22/17 05/23/17 05/23/17 22:00 01:19 05:39 Breakfast Lunch Supper Temperature 99.3 F 99.0 F 98.1 F 05/23/17 05/23/17 05/23/17 10:00 13:30 14:30 Breakfast 25% Lunch 50% Supper Temperature 98.1 F 98.2 F 05/23/17 05/23/17 05/23/17 17:00 19:31 22:00 Breakfast Lunch Supper 25% Temperature 97.3 F L 99 F 05/24/17 05/24/17 05/24/17 02:00 05:38 10:00 Breakfast Lunch Supper Temperature 97.8 F 98.8 F 98.4 F 05/24/17 05/24/17 05/24/17 12:31 14:25 18:00 Breakfast 50% Lunch 25% Supper Temperature 98.6 F 98.4 F 05/24/17 05/24/17 05/25/17 22:00 23:15 03:05 Breakfast Lunch Supper 50% Temperature 98.9 F 97.3 F L 05/25/17 05/25/17 06:00 08:20 Breakfast Lunch Supper Temperature 98.5 F 98.4 F Laboratory Tests 05/22/17 05/23/17 05/24/17 02:25 05:42 05:48 WBC 16.3 H 8.4 D 7.1 Pt was on reg diet/thin liquid at [facility], per April orders/ransfer summary. History Source: Patient, Medical Record Limitations to Obtaining History: Other (very [place]. hearing aid battery .) - Past Medical History Cardiovascular: Yes: CAD (s/p CABG, PPM), HTN Renal/: Yes: BPH, UTI - Past Surgical History Past Surgical History: Yes: CABG, Joint Replacement, Permanent Pacemaker - Advance Directives Advance Directives: Yes: Living Will, Health Care Proxy, DNR, MOLST - Smoking History Smoking history: Unknown if ever smoked Have you smoked in the past 12 months: No - Alcohol/Substance Use Hx Alcohol Use: No History - Admission Reason For Visit: SEPSIS,PNEUMONIA,ELEVATED TROPONIN - Diagnostics X-ray: Report Reviewed CT Scan: Report Reviewed - General Mental Status: Alert and Oriented, Awake and Alert, Able to Follow Commands Attention: Intact Ability to Follow Directions: Fair Head/Neck Control: Good - Hearing Hearing: Impaired (Very [place], adversely affecting communication. Pt has a left bte hearing aid with him, however, the battery is .) Hearing Aide: Yes (left bte) With Patient: Yes Speech Evaluation - Communication Primary Language: THAI Communication: Yes: Simple Responses, Hearing Deficit - Speech Production Intelligibility: Yes: WNL - Speech Characteristics Voice Loudness: Normal Voice Pitch: Yes: Normal Voice Phonatory-based Quality: Yes: Normal Speech Pattern: Normal Speech Clarity: < 100% Nasal Resonance: Normal Articulation: Yes: Precise - Language/Auditory Comprehension Follows: Yes: 1 Stage Simple Commands Observation: Comprehends Conversational Speech: Yes (if loud enough), Benefits from Slow Speech: Yes, Benefits from Repetiton: Yes, Benefits from Increased Volume of Speech: Yes - Language/Verbal Expression Able to Respond to Simple Queries: Yes: WNL Able to Communicate Wants and Needs: Yes: WNL - Swallow Evaluation/Bedside Assessment Current Nutritional Intake: [place] Textured Liquids, Other (chopped, downgraded by RD, until swallowing evaluation performed.) Oral Secretions: Yes: WFL Dentition: Yes: Dental Appliance Upper, Dental Appliance Lower Facial Symmetry at Rest: Symmetrical Facial Symmetry on Retraction: Symmetrical Pucker Lips: Normal Smile: Normal Lingual Movement: Normal Lingual Speed of Movement: Normal Lingual Movement Strgth Against Opposition: Normal Lingual Movement Characteristics: Normal Velopharyngeal Movement: Normal Laryngeal Movement: Able to Palpate Rate of Intake: WFL Bolus Size: WFL Labial Seal: WFL Chewing: WFL Oral Prep Time: WFL A-P Transit: WFL Pocketing: None Timing of Swallow: WFL Coughing/Throat Clear: No Change in Voice: No Recommendations - Speech Evaluation, Impression/Plan Impression: Good mastication. (-) 3 oz water test. Good vocal quality. No cough , throat clearing or vocal wetness with po trials. - Dysphagia Impressions/Plan Dysphagia Impressions: No Impairment (overtly.), Ongoing Evaluation *Silent aspiration: cannot be R/O at bedside Recommendations: Modified Barium Swallow (if aspiration suspected by ID/ Pulmonary, suggest MBS to r/o silent aspiration. Bedside evaluation appears wnl. ), Other (Monitor for signs of aspiration.) - Recommendations Diet Consistency: Regular Medication Administration: Whole with water Liquids: Thin Liquids
--- NOTE | 2017-05-25 13:45 | PN ---
Progress Note, Physician History of Present Illness: seen and examined today in [facility]. states he still does not have a hearing aide battery thus he cannot hear very well. states he is feeling a little bit better today. no overnight events. no new complaints. - Current Medication List Current Medications: Active Medications Acetaminophen (Tylenol -) 650 mg PO Q6H PRN PRN Reason: FEVER OR PAIN Albuterol Sulfate (Ventolin 0.083% Nebulizer Soln -) 1 amp NEB Q4H PRN PRN Reason: SHORT OF BREATH/WHEEZING Aspirin (Asa -) 81 mg PO DAILY [facility] Last Admin: 05/25/17 09:40 Dose: 81 mg Atorvastatin Calcium (Lipitor -) 10 mg PO HS [facility] Last Admin: 05/24/17 21:47 Dose: 10 mg Clopidogrel Bisulfate (Plavix -) 75 mg PO DAILY [facility] Last Admin: 05/25/17 09:40 Dose: 75 mg Azithromycin (Zithromax 500mg Ivpb (Pre-Docked)) 250 mls @ 250 mls/hr IVPB DAILY [facility] Last Admin: 05/25/17 09:40 Dose: 250 mls/hr Lurasidone HCl (Latuda -) 120 mg PO DAILY [facility] Last Admin: 05/25/17 09:40 Dose: 120 mg Piperacillin Sod/Tazobactam Sod (Zosyn 3.375gm Ivpb (Pre-Docked)) 3.375 gm IVPB Q8H-IV [facility] PRN Reason: Protocol Last Admin: 05/25/17 09:44 Dose: 3.375 gm Sertraline HCl (Zoloft -) 100 mg PO DAILY [facility] Last Admin: 05/25/17 09:40 Dose: 100 mg Tamsulosin HCl (Flomax -) 0.4 mg PO HS [facility] Last Admin: 05/24/17 21:47 Dose: 0.4 mg - Objective Vital Signs: Vital Signs Temperature 98.4 F 05/25/17 08:20 Pulse Rate 59 L 05/25/17 09:10 Respiratory Rate 20 05/25/17 08:20 Blood Pressure 144/58 05/25/17 08:20 O2 Sat by Pulse Oximetry (%) 93 L 05/25/17 09:10 Constitutional: Yes: No Distress, Calm Eyes: Yes: Conjunctiva Clear, EOM Intact, PERRL HENT: Yes: Atraumatic, Normocephalic Neck: Yes: Supple, Trachea Midline Cardiovascular: Yes: Regular Rate and Rhythm, S1, S2. No: Bradycardia, Tachycardia, Pulse Irregular, Bruit, JVD, Gallop, Murmur, Rub, S3, S4, Varicosities Respiratory: Yes: Regular, Diminished, Rhonchi. No: Rales, Wheezes Gastrointestinal: Yes: Normal Bowel Sounds, Soft. No: Distention, Tenderness Edema: No Peripheral Pulses WNL: Yes Peripheral Pulses: Left Doralis Pedis: 2+, Right Dorsalis Pedis: 2+ Neurological: Yes: Alert, Oriented Psychiatric: Yes: Alert, Oriented Labs: CBC, BMP 05/24/17 05:48 05/24/17 05:48 INR, PTT INR 1.21 (0.82-1.09) H 05/22/17 02:25 - ....Imaging Chest X-ray: Report Reviewed, Image Reviewed EKG: Report Reviewed, Image Reviewed Other: Report Reviewed, Image Reviewed (tele-AV paced, PVCs) Assessment/Plan AMS Possible sepsis PNA Elevated troponin reported h/o CAD h/o PPM Recc Echo showed normal LV systolic function, moderate MR Peak trop 1.5 with normal CK level, then trended down Unlikely type 1 VT, more likely related to sepsis/PNA and MARYAN Plan for medical management of presumed underlying CAD Cont ASA, Plavix, and Lipitor for now Hold off on bblocker for now as resting HR 60s, although if needed should be safe as he has a PPM in place Ok to dc tele today and transfer to med/surg No additional inpatient cardiac work up needed at this time
[2017-05-25] MEDS ORDERED: DEXTROSE 5%-WATER - 50 ML IVPB ONE (16:58)
[2017-05-25] MEDS ORDERED: PIPERACILLIN/TAZOBACTAM 3.375 GM VIAL IVPB ONE (16:58)
[2017-05-25] MEDS: PIPERACILLIN/TAZOB 3.375 GM 3.375 GM in DEXTROSE 5%-WATER - 50 ML IVPB SCH (17:07)
[2017-05-25] MEDS: TAMSULOSIN HCL 0.4 MG CAP.ER.24H (FP) PO SCH (21:22)
[2017-05-25] MEDS: ATORVASTATIN CA 10 MG TABLET (FP) PO SCH (21:22)
[2017-05-26] MEDS ORDERED: PIPERACILLIN/TAZOBACTAM 3.375 GM VIAL IVPB ONE ×2 (00:21→10:45)
[2017-05-26] MEDS ORDERED: DEXTROSE 5%-WATER - 50 ML IVPB ONE ×2 (00:22→10:46)
[2017-05-26] MEDS: PIPERACILLIN/TAZOB 3.375 GM 3.375 GM in DEXTROSE 5%-WATER - 50 ML IVPB SCH ×2 (00:59→10:56)
[2017-05-26 08:21] LABS: BASOPHIL 0.2 % (0-2.0); EOSINOPHIL 0.5 % (0-4.5); MCH 30.4 pg (25.7-33.7); MCHC 34.5 g/dl (32.0-35.9); MEAN CELL VOLUME 88.1 fl (80-96); MEAN PLT VOLUME 10.4 fl (7.5-11.1); NEUTROPHILS 77.4 % (42.8-82.8); PLATELET COUNT 131 K/MM3 (134-434); RDW 12.9 % (11.9-15.9); WHITE BLOOD COUNT 10.3 K/mm3 (4.0-10.0)
[2017-05-26 09:18] LABS: ANION GAP 12 (8-16); CALCIUM 8.5 mg/dL (8.5-10.1); CO2 24 mmol/L (21-32); CREATININE 0.5 mg/dL (0.7-1.3); GLUCOSE,RANDOM 107 mg/dL (74-106)
--- NOTE | 2017-05-26 10:39 | PN ---
Progress Note, Physician Chief Complaint: no complaints except that his hearing aide needs new batteries eating well no SOB , coughing is less - Current Medication List Current Medications: Active Medications Acetaminophen (Tylenol -) 650 mg PO Q6H PRN PRN Reason: FEVER OR PAIN Albuterol Sulfate (Ventolin 0.083% Nebulizer Soln -) 1 amp NEB Q4H PRN PRN Reason: SHORT OF BREATH/WHEEZING Aspirin (Asa -) 81 mg PO DAILY [facility] Last Admin: 05/25/17 09:40 Dose: 81 mg Atorvastatin Calcium (Lipitor -) 10 mg PO [facility] Last Admin: 05/25/17 21:22 Dose: 10 mg Clopidogrel Bisulfate (Plavix -) 75 mg PO DAILY [facility] Last Admin: 05/25/17 09:40 Dose: 75 mg Azithromycin (Zithromax 500mg Ivpb (Pre-Docked)) 250 mls @ 250 mls/hr IVPB DAILY [facility] Last Admin: 05/25/17 09:40 Dose: 250 mls/hr Piperacillin Sod/Tazobactam (Sod 3.375 gm/ Dextrose) 50 mls @ 100 mls/hr IVPB Q8H-IV [facility] Last Admin: 05/26/17 00:59 Dose: 100 mls/hr Lurasidone HCl (Latuda -) 120 mg PO DAILY [facility] Last Admin: 05/25/17 09:40 Dose: 120 mg Sertraline HCl (Zoloft -) 100 mg PO DAILY [facility] Last Admin: 05/25/17 09:40 Dose: 100 mg Tamsulosin HCl (Flomax -) 0.4 mg PO [facility] Last Admin: 05/25/17 21:22 Dose: 0.4 mg - Objective Vital Signs: Vital Signs Temperature 98.9 F 05/26/17 08:42 Pulse Rate 92 H 05/26/17 08:42 Respiratory Rate 20 05/26/17 08:42 Blood Pressure 147/66 05/26/17 08:42 O2 Sat by Pulse Oximetry (%) 93 L 05/25/17 09:10 Constitutional: Yes: No Distress Cardiovascular: Yes: Regular Rate and Rhythm Respiratory: Yes: Diminished Gastrointestinal: Yes: Normal Bowel Sounds, Soft, Distention. No: Tenderness Edema: No Labs: CBC, BMP 05/26/17 06:30 05/26/17 06:30 INR, PTT INR 1.21 (0.82-1.09) H 05/22/17 02:25 Problem List - Problems (1) Pneumonia Code(s): J18.9 - PNEUMONIA, UNSPECIFIED ORGANISM Qualifiers: Pneumonia type: due to unspecified organism Laterality: left Lung location: upper lobe of lung Qualified Code(s): J18.1 - Lobar pneumonia, unspecified organism (2) Sepsis Code(s): A41.9 - SEPSIS, UNSPECIFIED ORGANISM Qualifiers: Sepsis type: sepsis due to unspecified organism Qualified Code(s): A41.9 - Sepsis, unspecified organism (3) NSTEMI (non-ST elevated myocardial infarction) Code(s): I21.4 - NON-ST ELEVATION (NSTEMI) MYOCARDIAL INFARCTION (4) Depression Code(s): F32.9 - MAJOR DEPRESSIVE DISORDER, SINGLE EPISODE, UNSPECIFIED (5) Dementia Code(s): F03.90 - UNSPECIFIED DEMENTIA WITHOUT BEHAVIORAL DISTURBANCE (6) HTN (hypertension) Code(s): I10 - ESSENTIAL (PRIMARY) HYPERTENSION (7) CAD (coronary artery disease) Code(s): I25.10 - ATHSCL HEART DISEASE OF [place] CORONARY ARTERY W/O ANG PCTRS Assessment/Plan PLAN Fever- pneumonia iv antibiotics Chest CT - noted no masses cultures negative nebs as needed swallow eval to r/o aspiration noted-- MBS today NSTEMI- Troponins decreased Telemetry Echo - EF 65% elevated troponins may be due to sepsis pt on ASA and Plavix-- has dark stools-- will add Iron and Vitamin C , monitor CBC improving clinically DC planning for tomorrow Advance directive- DNR/DNI
[2017-05-26] MEDS ORDERED: PT OWN MED DRAWER 7, Y5N ONE (10:45)
[2017-05-26] MEDS: LURASIDONE HCL 40 MG TABLET PO SCH (10:56)
[2017-05-26] MEDS: CLOPIDOGREL BISULFATE 75 MG TABLET (FP) PO SCH (10:57)
[2017-05-26] MEDS: AZITHROMYCIN IVPB 250 ML IVPB SCH (10:58)
[2017-05-26] MEDS: ASPIRIN 81 MG CHEWABLE TABLETS PO SCH (10:58)
[2017-05-26] MEDS: SERTRALINE HCL 50 MG TABLET (FP) PO SCH (10:59)
--- NOTE | 2017-05-26 11:42 | PN ---
Progress Note (short form) - Note Progress Note: PULMONARY LYING COMFORTABLY IN BED VSS/AFEBRILE ANICTERIC SCATTERED RHONCHI S1S2 BS+ NO EDEMA LABS/MEDS/CT CHEST/NOTES REVIEWED A/P Pneumonia s/p Severe Sepsis Lactic Acidosis improved Acute Kidney Injury improving +Troponins likely Demand Ischemia r/o [place] HTN CAD s/p CABG - antibiotics - IVF - monitor urine output, creatinine - O2 to keep SpO2 >90% - aspiration precautions Raz DWYER MD
--- NOTE | 2017-05-26 12:05 | PN ---
Progress Note (short form) - Note Progress Note: doing well, resitng comfortably Vital Signs Period Temp Pulse Resp BP Sys/Mcfarlane Pulse Ox Last 24 Hr 98.4 F-98.9 F 60-103 20-20 108-156/51-66 cor-rrr lungs clear abd soft,nt ext no edema CBC, BMP 05/26/17 06:30 05/26/17 06:30 Microbiology 05/22/17 02:25 Blood - Peripheral Venous Blood Culture - Preliminary NO GROWTH OBTAINED AFTER 96 HOURS, INCUBATION TO CONTINUE FOR 1 DAYS. 05/22/17 02:25 Blood - Peripheral Venous Blood Culture - Preliminary NO GROWTH OBTAINED AFTER 96 HOURS, INCUBATION TO CONTINUE FOR 1 DAYS. 05/23/17 04:22 Sputum - Expectorated Gram Stain - Final 05/23/17 04:22 Sputum - Expectorated Sputum Culture - Final NORMAL RESPIRATORY NISH 05/23/17 04:22 Urine For Antigen Detection Legionella Antigen - Final 05/23/17 04:22 Urine For Antigen Detection Streptococcus pneumoniae Antigen (M - Final 05/22/17 02:25 Urine - Urine - Catheterized Urine Culture - Final NO GROWTH OBTAINED Current Medications Acetaminophen (Tylenol -) 650 mg PO Q6H PRN PRN Reason: FEVER OR PAIN Albuterol Sulfate (Ventolin 0.083% Nebulizer Soln -) 1 amp NEB Q4H PRN PRN Reason: SHORT OF BREATH/WHEEZING Ascorbic Acid (Vitamin C -) 500 mg PO BIDWM [facility] Last Admin: 05/26/17 12:33 Dose: 500 mg Aspirin (Asa -) 81 mg PO DAILY [facility] Last Admin: 05/26/17 10:58 Dose: 81 mg Atorvastatin Calcium (Lipitor -) 10 mg PO HS [facility] Last Admin: 05/25/17 21:22 Dose: 10 mg Clopidogrel Bisulfate (Plavix -) 75 mg PO DAILY [facility] Last Admin: 05/26/17 10:57 Dose: 75 mg Ferrous Sulfate (Feosol -) 325 mg PO BIDWM [facility] Last Admin: 05/26/17 12:33 Dose: 325 mg Azithromycin (Zithromax 500mg Ivpb (Pre-Docked)) 250 mls @ 250 mls/hr IVPB DAILY [facility] Last Admin: 05/26/17 10:58 Dose: 250 mls/hr Piperacillin Sod/Tazobactam (Sod 3.375 gm/ Dextrose) 50 mls @ 100 mls/hr IVPB Q8H-IV [facility] Last Admin: 05/26/17 10:56 Dose: 100 mls/hr Lactobacillus Acidophilus (Bacid -) 1 tab PO DAILY [facility] Last Admin: 05/26/17 12:33 Dose: 1 tab Lurasidone HCl (Latuda -) 120 mg PO DAILY [facility] Last Admin: 05/26/17 10:56 Dose: 120 mg Sertraline HCl (Zoloft -) 100 mg PO DAILY [facility] Last Admin: 05/26/17 10:59 Dose: 100 mg Tamsulosin HCl (Flomax -) 0.4 mg PO HS [facility] Last Admin: 05/25/17 21:22 Dose: 0.4 mg a/p sepsis- bibasilar pneumonia zosyn/zithromax day #4 switch to rocephin, with plans for po augmentin on discharge to complete 7 days d/w PMD chest ct no mass NSTEMI- d/w cardiology renal insufficiency Problem List - Problems (1) Sepsis Code(s): A41.9 - SEPSIS, UNSPECIFIED ORGANISM Qualifiers: Sepsis type: sepsis due to unspecified organism Qualified Code(s): A41.9 - Sepsis, unspecified organism (2) Pneumonia Code(s): J18.9 - PNEUMONIA, UNSPECIFIED ORGANISM Qualifiers: Pneumonia type: due to unspecified organism Laterality: left Lung location: upper lobe of lung Qualified Code(s): J18.1 - Lobar pneumonia, unspecified organism (3) NSTEMI (non-ST elevated myocardial infarction) Code(s): I21.4 - NON-ST ELEVATION (NSTEMI) MYOCARDIAL INFARCTION (4) Lung mass Code(s): R91.8 - OTHER NONSPECIFIC ABNORMAL FINDING OF LUNG FIELD
[2017-05-26] MEDS: ASCORBIC ACID 500 MG TABLET (FP) PO SCH ×2 (12:33→17:25)
[2017-05-26] MEDS: LACTOBACILLUS ACIDOPHILUS 1 EACH TAB (FP) PO SCH (12:33)
[2017-05-26] MEDS: FERROUS SO4 325 MG TABLET (FP) PO SCH ×2 (12:33→17:25)
--- NOTE | 2017-05-26 14:55 | PN ---
Progress Note, Physician History of Present Illness: seen and examined today in [facility]. appears improved. more alert. again asking for battery for his hearing aid. states he is feeling better. no overnight events. no new complaints. - Current Medication List Current Medications: Active Medications Acetaminophen (Tylenol -) 650 mg PO Q6H PRN PRN Reason: FEVER OR PAIN Albuterol Sulfate (Ventolin 0.083% Nebulizer Soln -) 1 amp NEB Q4H PRN PRN Reason: SHORT OF BREATH/WHEEZING Ascorbic Acid (Vitamin C -) 500 mg PO BIDWM [facility] Last Admin: 05/26/17 12:33 Dose: 500 mg Aspirin (Asa -) 81 mg PO DAILY [facility] Last Admin: 05/26/17 10:58 Dose: 81 mg Atorvastatin Calcium (Lipitor -) 10 mg PO [facility] Last Admin: 05/25/17 21:22 Dose: 10 mg Clopidogrel Bisulfate (Plavix -) 75 mg PO DAILY [facility] Last Admin: 05/26/17 10:57 Dose: 75 mg Ferrous Sulfate (Feosol -) 325 mg PO BIDWM [facility] Last Admin: 05/26/17 12:33 Dose: 325 mg Ceftriaxone Sodium 2 gm/ (Dextrose) 100 mls @ 200 mls/hr IVPB DAILY [facility] Lactobacillus Acidophilus (Bacid -) 1 tab PO DAILY [facility] Last Admin: 05/26/17 12:33 Dose: 1 tab Lurasidone HCl (Latuda -) 120 mg PO DAILY [facility] Last Admin: 05/26/17 10:56 Dose: 120 mg Sertraline HCl (Zoloft -) 100 mg PO DAILY [facility] Last Admin: 05/26/17 10:59 Dose: 100 mg Tamsulosin HCl (Flomax -) 0.4 mg PO [facility] Last Admin: 05/25/17 21:22 Dose: 0.4 mg - Objective Vital Signs: Vital Signs Temperature 99.3 F 05/26/17 14:39 Pulse Rate 66 05/26/17 14:39 Respiratory Rate 17 05/26/17 14:39 Blood Pressure 138/59 05/26/17 14:39 O2 Sat by Pulse Oximetry (%) 96 05/26/17 09:00 Constitutional: Yes: No Distress, Calm Eyes: Yes: Conjunctiva Clear, EOM Intact HENT: Yes: Atraumatic, Normocephalic Cardiovascular: Yes: Regular Rate and Rhythm, S1, S2. No: Bradycardia, Tachycardia, Pulse Irregular, Bruit, JVD, Gallop, Murmur, Rub, S3, S4, Varicosities Respiratory: Yes: Regular, Diminished. No: Rales, Rhonchi, Wheezes Gastrointestinal: Yes: Normal Bowel Sounds, Soft. No: Distention, Tenderness Musculoskeletal: Yes: Muscle Weakness Edema: No Peripheral Pulses WNL: Yes Peripheral Pulses: Left Doralis Pedis: 2+, Right Dorsalis Pedis: 2+ Neurological: Yes: Alert Psychiatric: Yes: Alert Labs: CBC, BMP 05/26/17 06:30 05/26/17 06:30 INR, PTT INR 1.21 (0.82-1.09) H 05/22/17 02:25 - ....Imaging Chest X-ray: Report Reviewed, Image Reviewed EKG: Report Reviewed, Image Reviewed Other: Report Reviewed, Image Reviewed Assessment/Plan AMS Possible sepsis PNA Elevated troponin likely demand ischemia/sepsis induced reported h/o CAD h/o PPM Recc Clinically improving Cont medical management for presumed CAD with type II PA secondary to sepsis and echo showing normal LV systolic function, mod MR No additional planned inpatient cardiac work up at this time, ok from a cardiac standpoint [facility]
[2017-05-26] MEDS: ATORVASTATIN CA 10 MG TABLET (FP) PO SCH (21:14)
[2017-05-26] MEDS: TAMSULOSIN HCL 0.4 MG CAP.ER.24H (FP) PO SCH (21:14)
[2017-05-27 08:22] VITALS: BP 149/67; PULSE 81; TEMP 99.1
[2017-05-27] MEDS: FERROUS SO4 325 MG TABLET (FP) PO SCH (08:45)
[2017-05-27] MEDS: ASCORBIC ACID 500 MG TABLET (FP) PO SCH (08:45)
[2017-05-27] MEDS ORDERED: cefTRIAXone 2 GM/100 ML BAG (PRE-DOCKED) IVPB SCH (10:00)
[2017-05-27] MEDS ORDERED: CEFTRIAXONE 2 GM in DEXTROSE 5%-WATER 100 ML IVPB SCH (10:00)
[2017-05-27] MEDS ORDERED: DEXTROSE 5%-WATER 100 ML IVPB ONE (10:17)
--- NOTE | 2017-05-27 10:23 | DS ---
Physical Examination Vital Signs: Vital Signs Temperature 99.1 F 05/27/17 08:16 Pulse Rate 81 05/27/17 08:16 Respiratory Rate 20 05/27/17 08:16 Blood Pressure 149/67 05/27/17 08:16 O2 Sat by Pulse Oximetry (%) 97 05/26/17 20:51 Constitutional: Yes: No Distress, Calm Cardiovascular: Yes: Regular Rate and Rhythm Respiratory: Yes: Diminished Gastrointestinal: Yes: Normal Bowel Sounds, Soft, Abdomen, Obese. No: Distention, Tenderness Edema: No Neurological: Yes: Alert, Oriented Psychiatric: Yes: WNL Labs: CBC, BMP 05/26/17 06:30 05/26/17 06:30 Discharge Summary Reason For Visit: SEPSIS,PNEUMONIA,ELEVATED TROPONIN Current Active Problems Acute kidney injury (Acute) Anemia (Acute) CAD (coronary artery disease) (Acute) Dementia (Acute) Depression (Acute) Elevated troponin (Acute) HTN (hypertension) (Acute) Hard of hearing (Acute) History of permanent cardiac pacemaker placement (Acute) Hyperlipidemia (Acute) Lactic acidosis (Acute) Lung mass (Acute) NSTEMI (non-ST elevated myocardial infarction) (Acute) Pneumonia (Acute) Sepsis (Acute) Hospital Course: Admitting history Pt examined by me in Telemetry h/o CAD, s/p CABG, hard of hearing, BPH,HTN major depression, dementia Sent from [facility] for elevated temp 103 F recorded in NH and altered mental status.Baseline mentation-- alert, disoriented and does not follow commands. Pt currently lying in bed, no distress.He is following simple commands. Coughing + moist+, on 50%ventimask. Does not appear to in distress, comfortable. As per day nurse, he seems to be more awake. [facility]+ Hospitalization course Pt admitted for altered mentation, severe sepsis, pneumonia and elevated troponins due to demand ischemia. He was seen by ID, Cardiology and Pulmonary. ON Iv antibiotics, gentle fluids No cardiac interventions per [employer] Continue with medical management with ASA and Plavix Ct chest-- bibasilar consolidation , atelectasis, no masses Echo-- normal LV systolic function campbell dc -- has good urine output Evaluated by swallow therapist and underwent modified barium swallow-- recommend ground dysphagia diet with nectar thick liquids and reassess as pt gets better He will be dc to [facility] on po Augmentin clinically stable for dc Time for preparation of discharge-- 40 min Condition: Improved - Instructions Referrals: Jaguar Mccullough [Primary Care Provider] - Disposition: LONGTERM FACILITY - Home Medications Comprehensive Discharge Medication List: Ambulatory Orders Ascorbate Calcium [Vitamin C] 500 mg PO DAILY 12/22/16 Aspirin [ASA -] 81 mg PO DAILY 12/22/16 Clopidogrel Bisulfate [Plavix -] 75 mg PO DAILY 12/22/16 Ergocalciferol (Vitamin D2) [Vitamin D2] 50,000 unit PO WEEKLY 12/22/16 Finasteride 5 mg PO DAILY 12/22/16 Lisinopril 5 mg PO DAILY 12/22/16 Lurasidone HCl [Latuda] 120 mg PO DAILY 12/22/16 Metoprolol Succinate [Toprol Xl] 50 mg PO DAILY 12/22/16 Multivitamins [Multivit ([facility] Formulary)] 1 tab PO DAILY 12/22/16 Sertraline HCl [Zoloft -] 200 mg PO DAILY 12/22/16 Simvastatin 20 mg PO HS 12/22/16 Tamsulosin HCl 0.4 mg PO HS 12/22/16 Tramadol HCl/Acetaminophen [Tramadol-Acetaminophn 37.5-325] 1 each PO DAILY PRN 12/22/16 Tramadol HCl/Acetaminophen [Tramadol-Acetaminophn 37.5-325] 2 each PO BID
[2017-05-27] MEDS: SERTRALINE HCL 50 MG TABLET (FP) PO SCH (10:24)
[2017-05-27] MEDS: LACTOBACILLUS ACIDOPHILUS 1 EACH TAB (FP) PO SCH (10:25)
[2017-05-27] MEDS: ASPIRIN 81 MG CHEWABLE TABLETS PO SCH (10:25)
[2017-05-27] MEDS: CLOPIDOGREL BISULFATE 75 MG TABLET (FP) PO SCH (10:25)
[2017-05-27] MEDS: LURASIDONE HCL 40 MG TABLET PO SCH (10:25)
--- NOTE | 2017-05-27 12:55 | PN ---
Progress Note, BAKER PASTRY - Note Progress Note: Pt pending return to [facility]. MBS results reviewed. Pt tolerating diet. Selected Entries 05/26/17 05/26/17 05/26/17 08:42 14:39 18:00 Breakfast 50% Lunch 50% Supper Temperature 98.9 F 99.3 F 99.1 F 05/26/17 05/27/17 05/27/17 21:43 06:37 08:16 Breakfast Lunch Supper 25% Temperature 99.5 F 99.1 F Laboratory Tests 05/26/17 06:30 WBC 10.3 H D Pt obtained hearing aid battery. Much improved communication. Pt being d/c'd on Augmentin. Suggest: Swallowing evaluation and continued therapy at [facility]. Monitor nutritional and pulmonary status.
== END 2017-05-27 14:30 | DRG 871 ==
LOC: JER 01:01 → JERBED 07:12 → J4W 09:11 → J6S 05-25 15:38
PROVIDERS: ADMIT Internal Medicine; ATTEND Internal Medicine
DX: A41.9 Sepsis, unspecified organism (principal); I21.4 Non-ST elevation (NSTEMI) myocardial infarction; J96.00 Acute respiratory failure, unspecified whether with hypoxia or hypercapnia; J18.1 Lobar pneumonia, unspecified organism; E87.2 Acidosis; I24.8 Other forms of acute ischemic heart disease; N17.9 Acute kidney failure, unspecified; J98.11 Atelectasis; R65.20 Severe sepsis without septic shock; N40.0 Benign prostatic hyperplasia without lower urinary tract symptoms; F03.90 Unspecified dementia, unspecified severity, without behavioral disturbance, psychotic disturbance, mood disturbance, and anxiety; I25.10 Atherosclerotic heart disease of native coronary artery without angina pectoris; D72.828 Other elevated white blood cell count; I10 Essential (primary) hypertension; E78.00 Pure hypercholesterolemia, unspecified; D64.9 Anemia, unspecified; R91.8 Other nonspecific abnormal finding of lung field; I45.19 Other right bundle-branch block; H91.90 Unspecified hearing loss, unspecified ear; R74.8 Abnormal levels of other serum enzymes; R13.10 Dysphagia, unspecified; L89.151 Pressure ulcer of sacral region, stage 1; Z66 Do not resuscitate; Z87.440 Personal history of urinary (tract) infections; Z86.73 Personal history of transient ischemic attack (TIA), and cerebral infarction without residual deficits; Z95.0 Presence of cardiac pacemaker; Z95.1 Presence of aortocoronary bypass graft
CPT/HCPCS: 36415; 70450-TC; 71010-TC; 71250-TC; 74230-TC; 80048; 80053; 81003; 82553; 82803; 83605; 84484; 85025; 85610; 85730; 86850; 86900; 86901; 87040; 87070; 87086; 87205; 87899; 92611-GN; 93005; 93010; 93306-TC; 99285-25; J1644